=== PATIENT | female | born 1965 | race Caucasian/White ===

== ENCOUNTER 2020-04-27 08:25 | Outpatient (REF) | payer OTHER, SELFPAY | END 2020-04-27 08:26 | disposition home or self-care (01) | LOC: HO.LAB 08:25 | PROVIDERS: PCP Internal Medicine; Visit Provider Internal Medicine | DX: Z20.828 Contact with and (suspected) exposure to other viral communicable diseases (principal) | CPT/HCPCS: 36415; 87635 ==

== ENCOUNTER 2020-05-14 05:51 | Outpatient (REF) | payer OTHER, SELFPAY ==
[2020-05-14 07:59] LABS: MANUAL DIFF FLAG NO
[2020-05-14 08:10] LABS: Basophils Absolute Auto 0.1 X10*3/uL (0.0-0.2); Basophils Percent Auto 1.1 % (0-2); Eosinophils Absolute Auto 0.2 X10*3/uL (0.0-0.4); Eosinophils Percent Auto 3.2 % (0-4); Hematocrit 39.2 % (37-47); Hemoglobin 12.7 g/dl (12.0-16.0); Lymphocytes Absolute Auto 2.2 X10*3/uL (1.2-4.9); Lymphocytes Percent Auto 32.7 % (20-40); Mean Corpuscular HGB Conc 32.4 g/dl (31.0-35.0); Mean Corpuscular Volume 92.5 fL (80-98); Mean Platelet Volume 11.5 fL (9.4-12.3); Monocytes Absolute Auto 0.5 X10*3/uL (0.1-1.2); Neutrophils Absolute Auto 3.7 X10*3/uL (2.0-8.3); Platelet Count 255 X10*3/uL (160-400); Red Blood Count 4.24 X10*6/uL (4.20-5.50); Red Cell Distribution Width 13.1 % (11.0-16.0); White Blood Count 6.6 X10*3/uL (4.8-10.8)
[2020-05-14 08:43] LABS: Alanine Aminotransferase 14 U/L (0-31); Albumin Level 4.1 g/dL (3.5-5.0); Alkaline Phosphatase 87 U/L (39-117); Aspartate Amino Transferase 17 U/L (5-31); Blood Urea Nitrogen 21 mg/dL (9-16); Cholesterol 156 mg/dL; Estimated Glomerular Filt Rate > 60; Glucose Random 94 mg/dL (60-115); HDL Cholesterol 51 mg/dL; LDL Cholesterol Calculated 92 mg/dl; Total Protein 6.6 g/dL (6.5-8.0); Triglycerides 67 mg/dL
[2020-05-14 08:48] LABS: Glucose Urine UA NEG (NEG); Leukocyte Esterase Urine NEG (NEG); Nitrite Urine NEG (NEG); PH 5.5 (5.0-8.0); Specific Gravity - Urine >= 1.030 (1.005-1.025); Urine Blood NEG (NEG); Urine Ketones NEG (NEG); Urine Protein NEG (NEG-TRACE)
[2020-05-14 08:49] LABS: Appearance Urine CLEAR; Color Urine YELLOW
[2020-05-14 08:54] LABS: Free T4 (Free Thyroxine) 1.08 ng/dL (0.71-1.85); Thyroid Stimulating Hormone 0.41 mIU/mL (0.32-4.0)
[2020-05-14 08:57] LABS: Anion Gap 13 (12-20); Carbon Dioxide 26 mmol/L (22-29); Chloride 104 mmol/L (96-108); Potassium 4.3 mmol/l (3.3-5.1); Sodium 139 mmol/L (135-145)
[2020-05-14 09:27] LABS: RBC Urine 0 /HPF (0); Squamous Epithelial Cell Urine 2+ /LPF; WBC Urine 0-2 /HPF (0-4)
[2020-05-14 09:56] LABS: Folate 8.2 ng/mL (> or = 4.0); Vitamin B12 827 pg/mL (200-900)
== END 2020-05-14 05:52 | disposition home or self-care (01) ==
LOC: HO.LAB 05:51
PROVIDERS: PCP Internal Medicine; Visit Provider Internal Medicine
DX: E03.9 Hypothyroidism, unspecified (principal); E78.00 Pure hypercholesterolemia, unspecified
CPT/HCPCS: 36415; 80053; 80061; 81001; 82306; 82607; 82746; 84439; 84443; 85025

== ENCOUNTER 2021-05-01 08:09 | Outpatient (REF) | payer OTHER, SELFPAY ==
--- NOTE | ~2021-05-01 | MM_ITS ---
EXAMINATION: MM SCREENING DIGITAL BREAST TOMOSYNTHESIS, BILATERAL CLINICAL INFORMATION: Screening. Asymptomatic. The lifetime risk of breast cancer based on the Tyrer-Cuzick Model is 6%. COMPARISON: Mammography: 03/23/2020, 03/19/2019, 02/28/2018 TECHNIQUE: Digital breast tomosynthesis is performed in both the craniocaudal and mediolateral oblique views along with computer-aided detection (CAD). Synthesized 2D images are generated from the tomosynthesis. FINDINGS: There are scattered areas of fibroglandular density (ACR BI-RADS breast composition Category b). There are no significant masses, abnormal calcifications, or other abnormalities. Parenchymal pattern is similar to prior exams. The axilla and skin contours are unremarkable. MM/MM tomosynthesis screening BI IMPRESSION: No mammographic evidence of malignancy. ASSESSMENT: BI-RADS 1: Negative RECOMMENDATION: Routine annual mammography screening. This patient's information was entered into a reminder system with a target due date for their next mammogram.
== END 2021-05-01 08:10 | disposition home or self-care (01) ==
LOC: HO.MAMMO 08:09
PROVIDERS: Visit Provider Internal Medicine
DX: Z12.31 Encounter for screening mammogram for malignant neoplasm of breast (principal)
CPT/HCPCS: 77063; 77067

== ENCOUNTER 2021-10-04 06:22 | Outpatient (REF) | payer OTHER, SELFPAY ==
[2021-10-04 06:37] LABS: MANUAL DIFF FLAG NO
[2021-10-04 07:26] LABS: Basophils Absolute Auto 0.1 X10*3/uL (0.0-0.2); Eosinophils Absolute Auto 0.2 X10*3/uL (0.0-0.4); Eosinophils Percent Auto 3.2 % (0-4); Hematocrit 42.8 % (37.0-47.0); Hemoglobin 13.6 g/dl (12.0-16.0); Imm Gran Abs Auto 0.01 X10*3/uL (0.00-0.03); Imm Gran Pct Auto 0.1 % (0.0-0.4); Lymphocytes Absolute Auto 2.6 X10*3/uL (1.2-4.9); Lymphocytes Percent Auto 37.4 % (20-40); Mean Corpuscular HGB Conc 31.8 g/dl (31.0-35.0); Mean Corpuscular Hemoglobin 29.9 pg (27.0-33.0); Mean Corpuscular Volume 94.1 fL (80.0-98.0); Mean Platelet Volume 11.8 fL (9.4-12.3); Monocytes Absolute Auto 0.4 X10*3/uL (0.1-1.2); Monocytes Percent Auto 6.1 % (2-11); Neutrophils Absolute Auto 3.6 x10*3/uL (2.0-8.3); Neutrophils Percent Auto 52.2 % (45-73); Platelet Count 245 X10*3/uL (160-400); Red Blood Count 4.55 X10*6/uL (4.20-5.50); White Blood Count 6.8 X10*3/uL (4.8-10.8)
[2021-10-04 08:29] LABS: Alanine Aminotransferase 14 U/L (0-31); Albumin Level 4.1 g/dL (3.5-5.0); Alkaline Phosphatase 85 U/L (39-117); Anion Gap 13 (12-20); Aspartate Amino Transferase 15 U/L (5-31); Blood Urea Nitrogen 16 mg/dL (9-16); Calcium 9.4 mg/dL (8.4-10.2); Carbon Dioxide 27 mmol/L (22-29); Chloride 105 mmol/L (96-108); Cholesterol 170 mg/dL; Estimated Glomerular Filt Rate > 60; Glucose Random 98 mg/dL (60-115); HDL Cholesterol 51 mg/dL; LDL Cholesterol Calculated 94 mg/dl; Potassium 4.1 mmol/L (3.3-5.1); Sodium 141 mmol/L (135-145); Total Protein 7.1 g/dL (6.5-8.0); Triglycerides 128 mg/dL
[2021-10-04 08:35] LABS: Free T4 (Free Thyroxine) 0.88 ng/dL (0.71-1.85); Thyroid Stimulating Hormone 2.83 uIU/mL (0.32-4.0); Vitamin D 25-OH Total 45.2 ng/mL (>30)
[2021-10-04 08:39] LABS: HBS Num1 2.38 mIU/mL (0-7.99); HBc Num1 0.05 S/CO (0.00-0.79); Hepatitis B Core Antibody Nonreactive (Nonreactive); ~Hepatitis B Surface Antibody NONREACTIVE (Nonreactive)
[2021-10-04 08:42] LABS: HBsAGNum1 0.22 S/CO (0.00-0.99); Hepatitis B Surface Antigen Negative (Negative)
[2021-10-04 08:48] LABS: Folate 12.7 ng/mL (> or = 4.0); Vitamin B12 971 pg/mL (200-900)
[2021-10-05 18:56] LABS: Mumps Virus IgG Antibody >300.00 AU/mL; Rubeola IgG (Measles) >300.00 AU/mL
== END 2021-10-04 06:23 | disposition home or self-care (01) ==
LOC: HO.LAB 06:22
PROVIDERS: PCP Internal Medicine; Visit Provider Internal Medicine
DX: Z01.84 Encounter for antibody response examination (principal); E03.9 Hypothyroidism, unspecified; E78.00 Pure hypercholesterolemia, unspecified
CPT/HCPCS: 36415; 80053; 80061; 82306; 82607; 82746; 84439; 84443; 85025; 86704; 86706; 86735; 86762; 86765; 86787; 87340

== ENCOUNTER 2022-01-05 16:00 | Outpatient (REF) | payer OTHER, SELFPAY ==
--- NOTE | ~2022-01-05 | XR_ITS ---
EXAMINATION: XR LUMBOSACRAL SPINE CLINICAL INFORMATION: M54.50 - Low back pain, unspecified COMPARISON: Lumbar radiographs 11/30/2010 TECHNIQUE: Three views of the lumbosacral spine. FINDINGS: Normal lumbar segmentation with 5 nonrib-bearing lumbar vertebrae of normal height and normal lumbar lordosis. No lumbar vertebral compression or destructive process. There are degenerative disc changes greatest at L5-S1 with disc narrowing and vertebral spurring and lesser disc narrowing L4-L5 with associated facet degeneration L4-S1. There is grade 0-1 spondylolisthesis at L4-L5, new from 2010. The SI joints and visualized sacrum are unremarkable. Surgical clips present right upper abdomen. XR/XR lumbar spine 2-3V IMPRESSION: -Degenerative disc changes L5-S1 and lesser at L4-L5. Facet degeneration L4-S1. -Grade 0-1 spondylolisthesis L4-L5.
== END 2022-01-05 16:01 | disposition home or self-care (01) ==
LOC: HO.XRAY 16:00
PROVIDERS: PCP Internal Medicine; Visit Provider Internal Medicine
DX: M54.50 Low back pain, unspecified (principal)
CPT/HCPCS: 72100

== ENCOUNTER 2022-03-11 15:36 | Outpatient (REF) | payer OTHER, SELFPAY ==
[2022-03-12 10:42] LABS: BV Int Neg Control Negative (Negative); BV Int Pos Control Positive (Positive)
[2022-03-18 07:27] LABS: HPV mRNA E6/E7 rflx Not Detected (Not Detected)
== END 2022-03-11 15:37 | disposition home or self-care (01) ==
LOC: HO.LAB 15:36
PROVIDERS: Visit Provider Advanced Practice Midwife
DX: Z01.419 Encounter for gynecological examination (general) (routine) without abnormal findings (principal); Z11.51 Encounter for screening for human papillomavirus (HPV); N89.8 Other specified noninflammatory disorders of vagina
CPT/HCPCS: 87480; 87510; 87624; 87660; 88142

== ENCOUNTER 2022-05-07 07:52 | Outpatient (REF) | payer OTHER, SELFPAY ==
--- NOTE | ~2022-05-07 | MM_ITS ---
EXAMINATION: MM SCREENING DIGITAL BREAST TOMOSYNTHESIS, BILATERAL CLINICAL INFORMATION: Screening. Asymptomatic. The lifetime risk of breast cancer based on the Tyrer-Cuzick Model is 7%. COMPARISON: Mammography: 05/01/2021, 03/23/2020, 03/19/2019, 03/10/2018 TECHNIQUE: Digital breast tomosynthesis is performed in both the craniocaudal and mediolateral oblique views along with computer-aided detection (CAD). Synthesized 2D images are generated from the tomosynthesis. FINDINGS: There are scattered areas of fibroglandular density (ACR BI-RADS breast composition Category b). Parenchymal pattern is similar to prior studies. No developing density or architectural abnormality. No abnormal calcifications. Small nodular asymmetry central upper left breast on MLO view is similar to prior exams. The axilla and skin contours are unremarkable. MM/MM tomosynthesis screening BI IMPRESSION: No mammographic evidence of malignancy. ASSESSMENT: BI-RADS 2: Benign RECOMMENDATION: Routine annual mammography screening. This patient's information was entered into a reminder system with a target due date for their next mammogram.
== END 2022-05-07 07:53 | disposition home or self-care (01) ==
LOC: HO.MAMMO 07:52
PROVIDERS: PCP Internal Medicine; Visit Provider Internal Medicine
DX: Z12.31 Encounter for screening mammogram for malignant neoplasm of breast (principal)
CPT/HCPCS: 77063; 77067

== ENCOUNTER 2022-10-15 07:41 | Outpatient (REF) | payer OTHER, SELFPAY | END 2022-10-15 07:42 | disposition home or self-care (01) | LOC: HO.LAB 07:41 | PROVIDERS: PCP Internal Medicine; Visit Provider Internal Medicine | DX: Z13.89 Encounter for screening for other disorder (principal) ==

== ENCOUNTER 2022-10-22 07:54 | Outpatient (REF) | payer OTHER, SELFPAY ==
[2022-10-22 08:13] LABS: MANUAL DIFF FLAG NO
[2022-10-22 08:24] LABS: Basophils Absolute Auto 0.1 X10*3/uL (0.0-0.2); Basophils Percent Auto 1.1 % (0-2); Eosinophils Absolute Auto 0.2 X10*3/uL (0.0-0.4); Hemoglobin 13.4 g/dl (12.0-16.0); Imm Gran Abs Auto 0.02 X10*3/uL (0.00-0.03); Imm Gran Pct Auto 0.3 % (0.0-0.4); Lymphocytes Percent Auto 28.7 % (20-40); Mean Corpuscular HGB Conc 32.7 g/dl (31.0-35.0); Mean Corpuscular Volume 91.7 fL (80.0-98.0); Mean Platelet Volume 11.1 fL (9.4-12.3); Monocytes Absolute Auto 0.5 X10*3/uL (0.1-1.2); Monocytes Percent Auto 6.9 % (2-11); Neutrophils Absolute Auto 4.2 x10*3/uL (2.0-8.3); Platelet Count 236 X10*3/uL (160-400); Red Blood Count 4.47 X10*6/uL (4.20-5.50); Red Cell Distribution Width 13.1 % (11.0-16.0)
[2022-10-22 09:21] LABS: Alanine Aminotransferase 12 U/L (0-31); Alkaline Phosphatase 85 U/L (39-117); Anion Gap 13 (12-20); Aspartate Amino Transferase 15 U/L (5-31); Bilirubin Total 1.3 mg/dL (0.0-1.0); Blood Urea Nitrogen 15 mg/dL (9-16); Calcium 9.2 mg/dL (8.4-10.2); Carbon Dioxide 26 mmol/L (22-29); Chloride 109 mmol/L (96-108); Cholesterol 159 mg/dL; Estimated Glomerular Filt Rate > 60; Glucose Random 90 mg/dL (60-115); HDL Cholesterol 47 mg/dL; LDL Cholesterol Calculated 94 mg/dl; Potassium 4.5 mmol/L (3.3-5.1); Sodium 143 mmol/L (135-145); Total Protein 6.5 g/dL (6.5-8.0); Triglycerides 94 mg/dL
[2022-10-22 09:42] LABS: Folate 14.9 ng/mL (> or = 4.0); Thyroid Stimulating Hormone 1.35 uIU/mL (0.32-4.0); Vitamin B12 1012 pg/mL (200-900); Vitamin D 25-OH Total 50.9 ng/mL (>30)
== END 2022-10-22 07:55 | disposition home or self-care (01) ==
LOC: HO.LAB 07:54
PROVIDERS: PCP Internal Medicine; Visit Provider Internal Medicine
DX: E03.9 Hypothyroidism, unspecified (principal); E78.00 Pure hypercholesterolemia, unspecified
CPT/HCPCS: 36415; 80053; 80061; 82306; 82607; 82746; 84439; 84443; 85025

== ENCOUNTER 2022-12-01 08:06 | Outpatient (REF) | payer OTHER, SELFPAY ==
--- NOTE | ~2022-12-01 | XR_ITS ---
EXAMINATION: Knee x-ray CLINICAL INFORMATION: Pain COMPARISON: Previous x-ray most recent from 2019 TECHNIQUE: Standing AP view of both knees and lateral and sunrise view of the left knee FINDINGS: Left: Bone alignment is normal. No fracture or dislocation. There is arthritis at the medial femoral tibial and patellofemoral joints. There is slight lateral position of patella on the sunrise view.. There is a small joint effusion. Standing AP view of the right knee demonstrates degenerative change at the medial femoral tibial joint. XR/XR knee standing BI IMPRESSION: Mild arthritis
--- NOTE | ~2022-12-01 | XR_ITS ---
EXAMINATION: Knee x-ray CLINICAL INFORMATION: Pain COMPARISON: Previous x-ray most recent from 2019 TECHNIQUE: Standing AP view of both knees and lateral and sunrise view of the left knee FINDINGS: Left: Bone alignment is normal. No fracture or dislocation. There is arthritis at the medial femoral tibial and patellofemoral joints. There is slight lateral position of patella on the sunrise view.. There is a small joint effusion. Standing AP view of the right knee demonstrates degenerative change at the medial femoral tibial joint. XR/XR knee LT 2V IMPRESSION: Mild arthritis
== END 2022-12-01 08:07 | disposition home or self-care (01) ==
LOC: HO.HOSX 08:06
PROVIDERS: Visit Provider Physician Assistant
DX: M17.12 Unilateral primary osteoarthritis, left knee (principal); M25.561 Pain in right knee
CPT/HCPCS: 73560; 73565; 99202

== ENCOUNTER → 2023-01-27 15:25 | Outpatient (BNVA) | payer OTHER, SELFPAY | PROVIDERS: Visit Provider Physician Assistant | DX: M17.12 Unilateral primary osteoarthritis, left knee (principal) | CPT/HCPCS: 20610; J7323 ==

== ENCOUNTER 2023-02-03 11:30 | Outpatient (AMB) | payer OTHER, SELFPAY ==
--- NOTE | 2023-02-03 11:35 | A.OFFVIS_ITS ---
Intake Intake Visit Reasons: OV-Left knee Euflexxa #2 Intake Note: Janki a 57 year old female who presents today for left knee Euflexxa injection #2. Allergies codeine Allergy (Unknown, Verified 02/03/23 11:44) anxious/itchy oxycodone Allergy (Unknown, Verified 02/03/23 11:44) nausea HPI OV-Left knee Euflexxa #2 HPI Details 57 yo female returns to the office today #2 euflexxa left knee PFSH Medical History Cervical cancer screening Cholelithiasis Colon cancer screening History of torn meniscus of left knee Hypothyroid Obesity (BMI 30-39.9) Surgical History History of laparoscopic cholecystectomy History of tubal ligation Family History Father Alzheimers disease Mother Diabetes Hypertension Maternal Grandmother Liver cancer Bipolar 1 disorder Maternal Aunt Lung cancer Maternal Uncle FH: prostate cancer Paternal Grandmother Uterine cancer Brother CVA (cerebral vascular accident) Eye cancer Myocardial infarct Son Bipolar 1 disorder Family/Other Mental health disorder Maternal Grandfather Myocardial infarct Social History Housing: Apartment Alcohol intake: never Patient Tobacco Use Status: Never used Tobacco e-Cigarette/Vaping Use: Never Used Second Hand Smoke Exposure: No service: No Current occupational status: employed 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 Current occupational exposures/hazards: No Cognitive needs: No Hearing needs: No Vision needs: No Female Reproductive History Menstrual Age of Menarche: 15 Review of Systems Const All systems reviewed & are unremarkable except as noted in HPI and below Physical Exam Const General: cooperative, healthy appearing, comfortable, no acute distress, well developed and alert Orientation/consciousness: patient oriented x3 HEENT Head: Yes normal to inspection, Yes normocephalic and Yes atraumatic Eyes General: appearance normal, both eyes and all related structures Resp Effort & Inspection: normal respiratory effort and able to speak in complete sentences Cardio Rate: regular rate Peripheral pulses: Peripheral pulses 2+ throughout GI Palpation (GI): Soft to palpation Skin Lesions: no lesions Rashes: no rashes Neuro General: patient oriented x3 Extrem Other: Left knee skin intact, no erythema or joint effusion. Lateral retropatellar tenderness. Full ROM with crepitus. Negative Faisal?s. No ligamentous laxity. NVI. Office Procedures Joint Injection/Drain Joint Injection/Drain Details: Hyaluronate Sodium [Euflexxa] ? 20 mg INTRAARTIC .STK-MED ONE Primary Site: left knee Prep: site was prepped using aseptic technique, ethochloride spray was applied and injection warnings given Injected: in the joint Approach Used: anterolateral Procedure: The patient tolerated the procedure well and there was some relief with the local anesthesia Coding 33951 - Glenohumeral/Tronchanteric Bursa/Intraarticular Procedure code (CPT) selection complete Results Reviewed Results Reviewed: 02/03/23 11:34 Hyaluronate Sodium [Euflexxa] 20 mg INTRAARTIC .STK-MED ONE Assessment & Plan Assessment & Plan (1) Primary osteoarthritis of left knee: Code(s): M17.12 - Unilateral primary osteoarthritis, left knee Plan We discussed options today which include Euflexxa gel injection. They did consent to move forward with the left knee Euflexxa gel injection #2, which was tolerated well. I recommended rest, ice and elevation and OTC anti- inflammatories PRN for discomfort. If symptoms worsen, patient will contact the office, otherwise she will return in 1 week for Euflexxa gel injection #3. Coding Level of Care Code Procedure Only Diagnoses Primary osteoarthritis of left knee M17.12 CPT Codes Coding - Joint 7: 47225 - Glenohumeral/Tronchanteric Bursa/Intraarticular ([id number])
== END 2023-02-03 11:54 | disposition home or self-care (01) ==
PROVIDERS: Visit Provider Physician Assistant
DX: M17.12 Unilateral primary osteoarthritis, left knee (principal)
CPT/HCPCS: 20610

== ENCOUNTER → 2023-02-03 11:30 | Outpatient (BNVA) | payer OTHER, SELFPAY | PROVIDERS: Visit Provider Physician Assistant | DX: M17.12 Unilateral primary osteoarthritis, left knee (principal) | CPT/HCPCS: 20610; J7323 ==

== ENCOUNTER 2023-02-10 15:21 | Outpatient (AMB) | payer OTHER, SELFPAY ==
--- NOTE | 2023-02-10 15:24 | MHC.OFFVIS ---
Intake Vital Signs 02/10/23 15:25 Height 5 ft 2 in Weight 190 lb BMI 34.7 Intake Visit Reasons: OV-Left knee Euflexxa #3 Intake Note: Janki a 57 year old female who presents today for left knee Euflexxa injection #3 Allergies codeine Allergy (Unknown, Verified 02/03/23 11:44) anxious/itchy oxycodone Allergy (Unknown, Verified 02/03/23 11:44) nausea HPI OV-Left knee Euflexxa #3 HPI Details 57-year-old female who returns to the office today for left knee Euflexxa gel injection #3. PFSH Medical History Cervical cancer screening Cholelithiasis Colon cancer screening History of torn meniscus of left knee Hypothyroid Obesity (BMI 30-39.9) Surgical History History of laparoscopic cholecystectomy History of tubal ligation Family History Father Alzheimers disease Mother Diabetes Hypertension Maternal Grandmother Liver cancer Bipolar 1 disorder Maternal Aunt Lung cancer Maternal Uncle FH: prostate cancer Paternal Grandmother Uterine cancer Brother CVA (cerebral vascular accident) Eye cancer Myocardial infarct Son Bipolar 1 disorder Family/Other Mental health disorder Maternal Grandfather Myocardial infarct Social History Housing: Apartment Alcohol intake: never Patient Tobacco Use Status: Never used Tobacco e-Cigarette/Vaping Use: Never Used Second Hand Smoke Exposure: No service: No Current occupational status: employed 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 Current occupational exposures/hazards: No Cognitive needs: No Hearing needs: No Vision needs: No Female Reproductive History Menstrual Age of Menarche: 15 Review of Systems Const All systems reviewed & are unremarkable except as noted in HPI and below Physical Exam Vital Signs: BMI result Body Mass Index 34.7 Const General: cooperative, healthy appearing, comfortable, no acute distress, well developed and alert Orientation/consciousness: patient oriented x3 HEENT Head: Yes normal to inspection, Yes normocephalic and Yes atraumatic Eyes General: appearance normal, both eyes and all related structures Resp Effort & Inspection: normal respiratory effort and able to speak in complete sentences Cardio Rate: regular rate Peripheral pulses: Peripheral pulses 2+ throughout GI Palpation (GI): Soft to palpation Skin Lesions: no lesions Rashes: no rashes Neuro General: patient oriented x3 Extrem Other: Left knee skin intact, no erythema or joint effusion. Lateral retropatellar tenderness. Full ROM with crepitus. Negative Faisal?s. No ligamentous laxity. NVI. Office Procedures Joint Injection/Drain Joint Injection/Drain Details: Hyaluronate Sodium [Euflexxa] ? 20 mg INTRAARTIC .STK-MED ONE Primary Site: left knee Prep: site was prepped using aseptic technique, ethochloride spray was applied and injection warnings given Injected: in the joint Approach Used: anterolateral Procedure: The patient tolerated the procedure well Coding 76319 - Glenohumeral/Tronchanteric Bursa/Intraarticular Procedure code (CPT) selection complete Results Reviewed Results Reviewed: 02/10/23 15:19 Hyaluronate Sodium [Euflexxa] 20 mg INTRAARTIC .STK-MED ONE Assessment & Plan Assessment & Plan (1) Primary osteoarthritis of left knee: Code(s): M17.12 - Unilateral primary osteoarthritis, left knee Plan We discussed options today which include Euflexxa gel injection. They did consent to move forward with the left knee Euflexxa gel injection #3, which was tolerated well. I recommended rest, ice and elevation and OTC anti-inflammatories PRN for discomfort. If symptoms persist or worsens over the next 6-8 weeks, patient will contact the office, otherwise follow-up as needed. Patient Instructions: Scribed for Chrissy Moseley PA-C, by Toni Berrios medical billing manager, on 02/10/2023 at 3:30 PM EST. IChrissy PA-C, have personally reviewed and agree with the information entered by the scribe. Coding Level of Care Code Procedure Only Diagnoses Primary osteoarthritis of left knee M17.12 CPT Codes Coding - Joint 7: 12415 - Glenohumeral/Tronchanteric Bursa/Intraarticular ([id number])
[2023-02-10 15:25] VITALS: BMI 34.7
== END 2023-02-13 21:54 | disposition home or self-care (01) ==
PROVIDERS: Visit Provider Physician Assistant
DX: M17.12 Unilateral primary osteoarthritis, left knee (principal)
CPT/HCPCS: 20610

== ENCOUNTER → 2023-02-10 15:21 | Outpatient (BNVA) | payer OTHER, SELFPAY | PROVIDERS: Visit Provider Physician Assistant | DX: M17.12 Unilateral primary osteoarthritis, left knee (principal) | CPT/HCPCS: 20610; J7323 ==

== ENCOUNTER 2023-03-22 15:21 | Outpatient (AMB) | payer OTHER, SELFPAY ==
[2023-03-22 15:30] VITALS: BP 130/80; BMI 34.6
--- NOTE | 2023-03-22 15:30 | A.OFFVIS_ITS ---
Intake Vital Signs 03/22/23 15:30 Height 5 ft 2 in Weight 189 lb BMI 34.6 BP 130/80 Intake Visit Reasons: Annual Intake Note: The patient agreed to use of a certified medical assistant during this encounter. Scribed for MATHEW Figueroa by Reba Cassidy certified medical assistant, on 03/22/2023 at 3:52 pm EST. Tool And Production Planner Required: No Information Interpreted: non-clinical & clinical Grounds And Nursery Specialist: Grounds And Nursery Specialist Present (Aidyn) Allergies codeine Allergy (Unknown, Verified 03/22/23 15:31) anxious/itchy oxycodone Allergy (Unknown, Verified 03/22/23 15:31) nausea Is last menstrual period known: No Post menopausal: Yes HPI HPI Comments History of Present Illness Details She is a postmenopausal woman presenting for annual exam. Doing well with no disability representative concerns. Patient admits she does not eat a healthy diet but occasionally takes Calcium and Vitamin D supplements. She stays active with work. Currently not sexually active. Denies vaginal itching and irritation. Denies family hx of breast, colon and ovarian cancer. Last pap smear 03/11/22. Last mammogram 05/07/22. UTD on cologaurd. [facility] Medical History Cervical cancer screening Cholelithiasis Colon cancer screening History of torn meniscus of left knee Hypothyroid Obesity (BMI 30-39.9) Surgical History History of laparoscopic cholecystectomy History of tubal ligation Family History Father Alzheimers disease Mother Diabetes Hypertension Maternal Grandmother Liver cancer Bipolar 1 disorder Maternal Aunt Lung cancer Maternal Uncle FH: prostate cancer Paternal Grandmother Uterine cancer Brother CVA (cerebral vascular accident) Eye cancer Myocardial infarct Son Bipolar 1 disorder Family/Other Mental health disorder Maternal Grandfather Myocardial infarct Social History Housing: Apartment Alcohol intake: never Patient Tobacco Use Status: Never used Tobacco e-Cigarette/Vaping Use: Never Used Second Hand Smoke Exposure: No service: No Current occupational status: employed 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 Current occupational exposures/hazards: No Cognitive needs: No Hearing needs: No Vision needs: No Female Reproductive History Menstrual Age of Menarche: 15 control method: permanent sterilization Total pregnancies: 2 Full term: 2 Number of Living Children: 2 Date of last pap smear: 03/11/22 (negative) Date of Mammogram: 05/07/22 Physical Exam Vital Signs: Last Vital Signs BP 130/80 03/22/23 15:30 BMI result Body Mass Index 34.6 Const General: cooperative, healthy appearing, no acute distress, well developed and alert Orientation/consciousness: patient oriented x3 HEENT Head: Yes normal to inspection Eyes General: appearance normal, both eyes and all related structures Neck Neck: Yes normal visual inspection Thyroid: Thyroid normal Chest Chest palpation & inspection: normal inspection of the chest Breast/axilla inspection: normal inspection of the breasts (no puckering, dimpling, peau de orange, retraction, discharge, masses) Breast/axilla palpation: normal palpation of the breasts Resp Effort & Inspection: normal respiratory effort GI Inspection: Yes normal to inspection and Yes obesity Palpation (GI): Soft to palpation (to palpation) Rectal Exam - Female: deferred General: Yes bladder normal to inspection External Female Exam: normal external appearance and normal appearance of the urethra Speculum Exam - Vagina: normal appearance of the vagina, normal palpation and vagina atrophic Speculum Exam - Cervix: normal appearance of the cervix and normal palpation Bimanual exam- vagina & uterus: normal palpation and normal palpation Bimanual Exam- Adnexa, other: normal adnexae and no masses Skin General skin exam: no rashes or lesions noted Neuro General: patient oriented x3 Cognition (Neuro): normal cognition Extrem General: Yes normal to inspection Psych Attitude: cooperative Thought process: Normal thought process present Assessment & Plan Assessment & Plan (1) Encounter for well woman exam: Code(s): Z01.419 - Encounter for gynecological examination (general) (routine) without abnormal findings Plan: Discussed: Current recommendations for pap smears per ASCCP guidelines. Breast awareness and periodic self breast exams. Encouraged yearly mammograms. Maintaining a healthy lifestyle including a well balanced diet including Calcium and Vitamin D and routine exercise. Encouraged to use condoms for STD prevention if become sexually active. Contact office with any PMB. All of her questions and concerns were addressed to the best of my ability. RTO in 1 year for AG. Orders: Orders MM tomosynthesis screening BI Today Z12.31 - Encounter for screening mammogram for malignant neoplasm of breast Coding Level of Care Code Est Pt Prev Care 40-64y(44458) Diagnoses Encounter for well woman exam Z01.419
== END 2023-03-22 16:02 | disposition home or self-care (01) ==
PROVIDERS: Visit Provider Advanced Practice Midwife
DX: Z01.419 Encounter for gynecological examination (general) (routine) without abnormal findings (principal)
CPT/HCPCS: 99396

== ENCOUNTER → 2023-03-22 15:21 | Outpatient (BNVA) | payer OTHER, SELFPAY | PROVIDERS: Visit Provider Advanced Practice Midwife ==

== ENCOUNTER 2023-05-01 15:38 | Outpatient (AMB) | payer OTHER, SELFPAY ==
[2023-05-01 15:39] VITALS: BP 144/96; PULSE 64; O2SAT 98; BMI 34.2
--- NOTE | 2023-05-01 15:39 | MHC.PC.OV ---
Vital Signs 05/01/23 15:39 Height 5 ft 2 in Weight 187 lb BMI 34.2 BP 144/96 H Blood Pressure Location Lt brachial Position Sitting Pulse 64 Pulse Source Pulse Oximeter Temp Source Skin Pulse Oximetry (%) 98 Oxygen Delivery Method Room Air Intake Visit Reasons: Hypothyroidism, blood pressure Library Customer Service Clerk Required: No Allergies codeine Allergy (Unknown, Verified 05/01/23 15:40) anxious/itchy oxycodone Allergy (Unknown, Verified 05/01/23 15:40) nausea Tobacco use date assessed: 05/01/23 Dental Screening Dental Screen Date: 05/01/23 Did you have a dental visit in the last 12 months?: Yes Did you have a dental problem in the last 6 months where you did not have access to dental care?: No Was dental information given to patient?: Patient has dentist HPI Hypothyroidism, blood pressure HPI Details 57-year-old obese female with hypertension hypothyroidism last seen in October 2022. Patient had some left knee pain and is here for follow-up mammogram is due this month patient got her flu shot April 22. As for the knee pain follows up with Ortho had left knee Euflexxa gel injection 3. [facility] Medical History (Updated 05/01/23 @ 16:26 by Lindsey Carter MD) Left knee pain History of torn meniscus of left knee Cervical cancer screening Colon cancer screening Cholelithiasis Obesity (BMI 30-39.9) Hypothyroid Surgical History History of laparoscopic cholecystectomy History of tubal ligation Family History Father Alzheimers disease Mother Diabetes Hypertension Maternal Grandmother Liver cancer Bipolar 1 disorder Maternal Aunt Lung cancer Maternal Uncle FH: prostate cancer Paternal Grandmother Uterine cancer Brother CVA (cerebral vascular accident) Eye cancer Myocardial infarct Son Bipolar 1 disorder Family/Other Mental health disorder Maternal Grandfather Myocardial infarct Social History Housing: Apartment Alcohol intake: never Patient Tobacco Use Status: Never used Tobacco e-Cigarette/Vaping Use: Never Used Second Hand Smoke Exposure: No service: No Current occupational status: employed 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 1. Little interest or pleasure in doing things: not at all 2. Feeling down, depressed, or hopeless: not at all 3. Trouble falling or staying asleep, or sleeping too much: not at all 4. Feeling tired or having little energy: not at all 5. Poor appetite or overeating: not at all 6. Feeling bad about yourself - or that you are a failure or have let yourself or your family down: not at all 7. Trouble concentrating on things, such as reading the newspaper or watching television: not at all 8. Moving or speaking so slowly that other people could have noticed. Or the opposite - being so fidgety or restless that you have been moving around a lot more than usual: not at all 9. Thoughts that you would be better off or of hurting yourself in some way: not at all Total score: 0 Depression Screening Interpretation: Negative Depression Screening Done: Yes Source: Developed by Drs. Barak Elise, Brandi Rich, Sameer Ceballos and colleagues, with an educational rodrick from [employer]. Thrive Questionnaire Date Thrive assessed: 08/22/22 AUDIT C Alcohol Use Questionnaire (AUDIT-C) 1. How often do you have a drink containing alcohol?: Never Total Score: 0 KATERYNA-7 AMB Questionnaire KATERYNA-7 Date KATERYNA - 7 assessed: 08/22/22 Source: Developed by Drs. Barak Elise, Brandi Rich, Sameer Ceballos and colleagues, with an educational rodrick from [employer]. Physical exam (Primary Care) Vital Signs: Last Vital Signs Pulse 64 05/01/23 15:39 BP 144/96 H 05/01/23 15:39 Pulse Ox 98 05/01/23 15:39 Oxygen Delivery Method Room Air 05/01/23 15:39 BMI result Body Mass Index 34.2 Tobacco/Smoking Status: Tobacco use Status Tobacco use date assessed 05/01/23 05/01/23 15:40 Patient Tobacco Use Status Never used Tobacco 05/01/23 15:40 e-Cigarette/Vaping Use Never Used 05/01/23 15:40 PHQ-9: PHQ-9 Score PHQ-9: Total score 0 05/01/23 15:52 Depression Screening Interpretation: Negative Thrive Assessment: Date of Thrive Assessment Date Thrive assessed 08/22/22 05/01/23 15:40 Const General: alert; No acute distress Eyes Conjunctivae: conjunctivae normal Resp Auscultation: clear to auscultation bilaterally Cardio Rate: regular rate Rhythm: regular rhythm GI Inspection: Yes normal to inspection Extrem General: Yes normal to inspection and No edema Assessment and Plan Assessment & Plan (1) Hypothyroid: Code(s): E03.9 - Hypothyroidism, unspecified Qualifiers: Hypothyroidism type: acquired Qualified Code(s): E03.9 - Hypothyroidism, unspecified Plan: Continue with the thyroid medication October 2022 last blood work (2) Obesity (BMI 30-39.9): Code(s): E66.9 - Obesity, unspecified Plan: Diet and exercise (3) Hypertension: Code(s): I10 - Essential (primary) hypertension Plan: Continue with blood pressure medication. Decrease salt intake and exercise patient not on any medication yet. PAtient BP has been good at home (4) Primary osteoarthritis of left knee: Code(s): M17.12 - Unilateral primary osteoarthritis, left knee Plan: Patient follows up with orthopedics has had Euflexxa injection 3. (5) Bilateral hand pain: Code(s): M79.641 - Pain in right hand; M79.642 - Pain in left hand Orders: Orders Free T4 (Free Thyroxine) 6 Months E03.9 - Hypothyroidism, unspecified Complete Blood Count Auto Diff 6 Months E03.9 - Hypothyroidism, unspecified Vitamin B12 and Folate 6 Months E03.9 - Hypothyroidism, unspecified XR hand RT 2V Today M79.641 - Pain in right hand, M79.642 - Pain in left hand Thyroid Stimulating Hormone 6 Months E03.9 - Hypothyroidism, unspecified Comprehensive Met. Panel 6 Months E03.9 - Hypothyroidism, unspecified Lipid Panel 6 Months E03.9 - Hypothyroidism, unspecified, E78.00 - Pure hypercholesterolemia, unspecified Vitamin D 25-OH Total 6 Months E03.9 - Hypothyroidism, unspecified XR hand LT 2V Today M79.641 - Pain in right hand, M79.642 - Pain in left hand Coding Level of Care Code Est Pt Level 4 (77691) Diagnoses Acquired hypothyroidism E03.9 Hypothyroidism type: acquired Obesity (BMI 30-39.9) E66.9 Hypertension I10 Primary osteoarthritis of left knee M17.12 Bilateral hand pain M79.641; M79.642
== END 2023-05-01 16:29 | disposition home or self-care (01) ==
PROVIDERS: Visit Provider Internal Medicine
DX: E03.9 Hypothyroidism, unspecified (principal); E66.9 Obesity, unspecified; I10 Essential (primary) hypertension; Z68.34 Body mass index [BMI] 34.0-34.9, adult; M17.12 Unilateral primary osteoarthritis, left knee; M79.641 Pain in right hand; M79.642 Pain in left hand
CPT/HCPCS: 99214

== ENCOUNTER 2023-05-10 15:49 | Outpatient (REF) | payer OTHER, SELFPAY ==
--- NOTE | ~2023-05-10 | XR_ITS ---
EXAMINATION: XR HAND, RIGHT CLINICAL INFORMATION: Pain. COMPARISON: Radiographs dated 10/23/2015. TECHNIQUE: PA, lateral, and oblique views of the right hand. FINDINGS: Bony alignment and mineralization are normal. There is a neutral ulnar variance. The proximal and distal carpal rows are intact. There is marked osteoarthritic change of the first carpometacarpal joint. There is mild osteoarthritic change of the second and third distal interphalangeal joints. No fracture or dislocation is seen. No abnormal bone erosion. No focal soft tissue swelling, gas or foreign body is seen. XR/XR hand RT 2V IMPRESSION: 1. No fracture or dislocation is seen. 2. There is marked osteoarthritic change of the right first carpometacarpal joint. 3. There is moderate osteoarthritic change of the second and third distal interphalangeal joints. 4. There is no abnormal bony erosive change. EXAMINATION: XR HAND, LEFT CLINICAL INFORMATION: Pain. COMPARISON: None available. TECHNIQUE: PA, lateral, and oblique views of the left hand. FINDINGS: Bony alignment and mineralization are normal. There is a neutral ulnar variance. The proximal and distal carpal rows are intact. There is moderate osteoarthritic change of the first carpometacarpal joint. No fracture or dislocation is seen. There is no abnormal bone erosion. No focal soft tissue swelling, gas or foreign body is seen. IMPRESSION: 1. No fracture or dislocation is seen. 2. There is moderate osteoarthritic change of the first carpometacarpal joint. 3. There is mild osteoarthritic change of the interphalangeal joint of the thumb. 4. No abnormal focal bone erosion is noted.
--- NOTE | ~2023-05-10 | XR_ITS ---
EXAMINATION: XR HAND, RIGHT CLINICAL INFORMATION: Pain. COMPARISON: Radiographs dated 10/23/2015. TECHNIQUE: PA, lateral, and oblique views of the right hand. FINDINGS: Bony alignment and mineralization are normal. There is a neutral ulnar variance. The proximal and distal carpal rows are intact. There is marked osteoarthritic change of the first carpometacarpal joint. There is mild osteoarthritic change of the second and third distal interphalangeal joints. No fracture or dislocation is seen. No abnormal bone erosion. No focal soft tissue swelling, gas or foreign body is seen. XR/XR hand LT 2V IMPRESSION: 1. No fracture or dislocation is seen. 2. There is marked osteoarthritic change of the right first carpometacarpal joint. 3. There is moderate osteoarthritic change of the second and third distal interphalangeal joints. 4. There is no abnormal bony erosive change. EXAMINATION: XR HAND, LEFT CLINICAL INFORMATION: Pain. COMPARISON: None available. TECHNIQUE: PA, lateral, and oblique views of the left hand. FINDINGS: Bony alignment and mineralization are normal. There is a neutral ulnar variance. The proximal and distal carpal rows are intact. There is moderate osteoarthritic change of the first carpometacarpal joint. No fracture or dislocation is seen. There is no abnormal bone erosion. No focal soft tissue swelling, gas or foreign body is seen. IMPRESSION: 1. No fracture or dislocation is seen. 2. There is moderate osteoarthritic change of the first carpometacarpal joint. 3. There is mild osteoarthritic change of the interphalangeal joint of the thumb. 4. No abnormal focal bone erosion is noted.
== END 2023-05-10 15:50 | disposition home or self-care (01) ==
LOC: HO.XRAY 15:49
PROVIDERS: PCP Internal Medicine; Visit Provider Internal Medicine
DX: M79.641 Pain in right hand (principal); M79.642 Pain in left hand
CPT/HCPCS: 73120

== ENCOUNTER 2023-05-13 07:50 | Outpatient (REF) | payer OTHER, SELFPAY | END 2023-05-13 07:51 | disposition home or self-care (01) | LOC: HO.MAMMO 07:50 | PROVIDERS: PCP Internal Medicine; Visit Provider Internal Medicine | DX: Z12.31 Encounter for screening mammogram for malignant neoplasm of breast (principal) | CPT/HCPCS: 77063; 77067 ==

== ENCOUNTER → 2023-05-13 08:15 | Outpatient (BNV) | payer OTHER, SELFPAY | PROVIDERS: PCP Internal Medicine; Visit Provider Radiology Diagnostic Radiology | DX: Z12.31 Encounter for screening mammogram for malignant neoplasm of breast (principal) | CPT/HCPCS: 77063; 77067 ==

== ENCOUNTER 2023-07-08 09:04 | Outpatient (AMB) | payer OTHER, SELFPAY ==
--- NOTE | 2023-07-08 09:06 | MHC.OFFWIV ---
Intake Vital Signs 07/08/23 09:08 Weight 84.822 kg BP 114/78 Blood Pressure Location Lt brachial Position Sitting Pulse 64 Pulse Source Pulse Oximeter Temp 97.6 F Temp Source Oral Pulse Oximetry (%) 100 Oxygen Delivery Method Room Air Intake Visit Reasons: EP sore throat congeston Intake Note: Patient here because shes been sick since Monday with sore throat and cough. She lost her voice at one point. Patient Tobacco Use Status: Never used Tobacco Allergies codeine Allergy (Unknown, Verified 07/08/23 09:08) anxious/itchy oxycodone Allergy (Unknown, Verified 07/08/23 09:08) nausea Do you need a note to return to daycare/school/sports/work: No HPI HPI Comments History of Present Illness Details [id number] 58-year-old female presents with fatigue, malaise bilateral ear pain, sore throat, intermittent cough that started Monday. 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 She denies chest pain, shortness of breath, nausea, vomiting, abdominal pain, diarrhea, headache, vision changes, dizziness Physical exam benign Likely viral illness. No signs of epiglottitis, retropharyngeal abscess, airway compromise, otitis media, otitis externa, mastoiditis. No signs of acute respiratory distress, PE. Plan at this time viral testing. Will discharge home with magic mouthwash and prednisone with inhaler. Educated patient on diagnosis and treatment plan, answered all question, patient verbalizes understanding. At this time patient will be discharged home, advised to return with new or worsening symptoms. Educated on worrisome signs and symptoms and when to return. At this time I feel comfortable discharge home. [facility] Medical History Left knee pain History of torn meniscus of left knee Cervical cancer screening Colon cancer screening Cholelithiasis Obesity (BMI 30-39.9) Hypothyroid Surgical History History of laparoscopic cholecystectomy History of tubal ligation Family History Father Alzheimers disease Mother Diabetes Hypertension Maternal Grandmother Liver cancer Bipolar 1 disorder Maternal Aunt Lung cancer Maternal Uncle FH: prostate cancer Paternal Grandmother Uterine cancer Brother CVA (cerebral vascular accident) Eye cancer Myocardial infarct Son Bipolar 1 disorder Family/Other Mental health disorder Maternal Grandfather Myocardial infarct Social History Housing: Apartment Alcohol intake: never Patient Tobacco Use Status: Never used Tobacco e-Cigarette/Vaping Use: Never Used Second Hand Smoke Exposure: No service: No Current occupational status: employed 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 Current occupational exposures/hazards: No Cognitive needs: No Hearing needs: No Vision needs: No Female Reproductive History Menstrual Age of Menarche: 15 Review of Systems Const Details: Constitutional : No Weight loss, No Fever, No Chills, + Fatigue, + Malaise ENT/Mouth : + sore throat, No Rhinorrhea, + ear pain Eyes: No Eye Pain, No Swelling, No Redness Cardiovascular : No Chest Pain, No SOB, No Dyspnea on Exertion, No Orthopnea, No Edema, No Palpitations Respiratory : + Cough, No Sputum, + Wheezing Gastrointestinal : No Nausea, No Vomiting, No Diarrhea, No Constipation, No abdominal Pain, No Hematochezia, No Melena Genitourinary : No Dysuria, No Urinary Frequency, No Hematuria, Musculoskeletal : No joint pain, No Myalgias, No Joint Swelling Skin : No Skin Lesions, No rash Neuro : No Weakness, No Numbness, No Dizziness, No Headache Psych : No Anxiety/Panic, No Depression All other systems reviewed and are negative All systems reviewed & are unremarkable except as noted in HPI and below Physical Exam Vital Signs: Last Vital Signs Temp 97.6 F 07/08/23 09:08 Pulse 64 07/08/23 09:08 BP 114/78 07/08/23 09:08 Pulse Ox 100 07/08/23 09:08 Oxygen Delivery Method Room Air 07/08/23 09:08 vss Appearance: Alert.? Oriented X3.? No acute distress.? Head: Normocephalic, atraumatic, no step-offs or deformities Eyes: Pupils equal, round and reactive to light.? ENT: Pharynx normal.??External ears normal, TMs normal bilaterally and EAC's normal. No pain with manipulation of external ears bilaterally. No mastoid tenderness. Neck: Normal inspection.? Neck supple.? CVS: Normal heart rate and rhythm.? Pulses normal.? Respiratory: No respiratory distress.? Breath sounds normal.? Skin: Skin warm and dry.? Normal skin color.? Normal skin turgor.? Extremities: No lower extremity edema.? No calf ttp. 5/5 strength to bilateral upper and lower extremities Neuro: Oriented X 3.? No motor deficit.? No sensory deficit. CN 2-12 intact Results AMB Rapid Strep AMB Rapid Strep Negative Last Edit by MERCEDES Plata on 07/08/23 09:17 Results Reviewed Results Reviewed: Laboratory Last Values Strep Scn Rapid Clinic Negative 07/08/23 09:17 Assessment & Plan Assessment & Plan (1) Viral illness: Code(s): B34.9 - Viral infection, unspecified Plan Take your medications as prescribed. If you were prescribed antibiotics today, it is important that you take your medication to their entirety, do not skip any doses, do not finish them early. Follow-up with your primary care provider this week. Return to the emergency department with new or worsening symptoms. Such as fevers, chills, chest pain, shortness of breath, nausea, vomiting, dizziness, headache, vision changes, lethargy In case of emergency call 911 Orders: Orders AMB Rapid Strep Screen Today Z13.9 - Encounter for screening, unspecified SARS-CoV2/FLU/RSV Today B34.9 - Viral infection, unspecified Medications: New Magic Mouthwash Diphen/Lido/Antacid 1:1:1 Lidocaine Viscous 2 % 80mL; diphenhydramine 12.5 mg/5 mL 80mL; aluminum-mag hydrox-simeth [id number]/5mL 80mL Swish and spit do not swallow 5 mL PO TID 240 mL 0RF prednisone 20 mg PO DAILY 5 tabs 0RF 5 days albuterol sulfate 90 mcg/actuation 2 puffs inhalation Q6H PRN 6.7 grams 0RF shortness of breath or wheezing Coding Level of Care Code Est Pt Level 3 (79193) Diagnoses Viral illness B34.9
[2023-07-08 09:08] VITALS: BP 114/78; PULSE 64; TEMP 36.4; O2SAT 100
== END 2023-07-08 11:07 | disposition home or self-care (01) ==
PROVIDERS: PCP Internal Medicine; Visit Provider Physician Assistant
DX: B34.9 Viral infection, unspecified (principal); J02.9 Acute pharyngitis, unspecified
CPT/HCPCS: 87880; 99051; 99213

== ENCOUNTER 2023-07-08 10:54 | Outpatient (REF) | payer OTHER, SELFPAY ==
[2023-07-08 11:44] LABS: Influenza A PCR NEGATIVE (Negative); Influenza B PCR NEGATIVE (Negative); Resp Syncy Virus RNA Qual PCR NEGATIVE (Negative); SARS COV2 PCR INHOUSE NEGATIVE (Negative)
== END 2023-07-08 10:55 | disposition home or self-care (01) ==
LOC: HO.HMGCLNP 10:54
PROVIDERS: Visit Provider Physician Assistant
DX: B34.9 Viral infection, unspecified (principal); Z11.52 Encounter for screening for COVID-19
CPT/HCPCS: 0241U

== ENCOUNTER 2023-07-18 11:32 | Outpatient (AMB) | payer OTHER, SELFPAY ==
[2023-07-18 11:41] VITALS: BP 132/80; PULSE 60; TEMP 36.6; O2SAT 100; BMI 34.2
--- NOTE | 2023-07-18 11:41 | AM.OFFWIN_ITS ---
Intake Vital Signs 07/18/23 11:41 Height 5 ft 2 in Weight 187 lb BMI 34.2 BP 132/80 Blood Pressure Location Rt brachial Position Sitting Pulse 60 Pulse Source Pulse Oximeter Temp 97.8 F Temp Source Temporal Artery Scan Pulse Oximetry (%) 100 Oxygen Delivery Method Room Air Intake Visit Reasons: EP LT leg swelling Intake Note: pt is here for c/o left leg swelling due to fall monday Patient Tobacco Use Status: Never used Tobacco Allergies codeine Allergy (Unknown, Verified 07/18/23 12:11) anxious/itchy oxycodone Allergy (Unknown, Verified 07/18/23 12:11) nausea Medication List - Last Reconciled 07/18/23 by Ney Clemente MD Synthroid (levothyroxine) 150 mcg PO DAILY 90 days NS Do you need a note to return to daycare/school/sports/work: Yes HPI EP LT leg swelling HPI Details 58-year-old female presents to the [facility] for a sick visit. Patient fell from the curb and landed on her back 2 days ago. She was able to get up without assistance and walk. Patient is reporting pain and swelling in the left knee since. She has history of meniscal tear in the past. She is able to walk without any limp. [facility] Medical History Left knee pain History of torn meniscus of left knee Cervical cancer screening Colon cancer screening Cholelithiasis Obesity (BMI 30-39.9) Hypothyroid Surgical History History of laparoscopic cholecystectomy History of tubal ligation Family History Father Alzheimers disease Mother Diabetes Hypertension Maternal Grandmother Liver cancer Bipolar 1 disorder Maternal Aunt Lung cancer Maternal Uncle FH: prostate cancer Paternal Grandmother Uterine cancer Brother CVA (cerebral vascular accident) Eye cancer Myocardial infarct Son Bipolar 1 disorder Family/Other Mental health disorder Maternal Grandfather Myocardial infarct Social History Housing: Apartment Alcohol intake: never Patient Tobacco Use Status: Never used Tobacco e-Cigarette/Vaping Use: Never Used Second Hand Smoke Exposure: No service: No Current occupational status: employed 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 Pain on flexion. Full range of motion, with minimal discomfort. Assessment & Plan Assessment & Plan (1) Sprain of left knee: Code(s): S83.92XA - Sprain of unspecified site of left knee, initial encounter Plan: Meloxicam called in. Keep the leg elevated. Medications: New meloxicam 15 mg PO DAILY 14 tabs 0RF Coding Level of Care Code Est Pt Level 3 (90168) Diagnoses Sprain of left knee S83.92XA
== END 2023-07-18 12:54 | disposition home or self-care (01) ==
PROVIDERS: PCP Internal Medicine; Visit Provider Internal Medicine
DX: S83.92XA Sprain of unspecified site of left knee, initial encounter (principal)
CPT/HCPCS: 99213

== ENCOUNTER 2023-08-03 09:34 | Outpatient (AMB) | payer OTHER, SELFPAY ==
[2023-08-03 09:39] VITALS: BP 122/76; PULSE 59; TEMP 36.8; O2SAT 97; BMI 34.2
--- NOTE | 2023-08-03 09:39 | MHC.OFFWIV ---
Intake Vital Signs 08/03/23 09:39 Height 5 ft 2 in Weight 187 lb BMI 34.2 BP 122/76 Blood Pressure Location Rt brachial Position Sitting Pulse 59 Pulse Source Pulse Oximeter Temp 98.3 F Temp Source Oral Pulse Oximetry (%) 97 Oxygen Delivery Method Room Air Intake Visit Reasons: EST/sore throat/diarreah(lobby masked) Intake Note: pt is here for c.o diarrhea Patient Tobacco Use Status: Never used Tobacco Allergies codeine Allergy (Unknown, Verified 08/03/23 09:51) anxious/itchy oxycodone Allergy (Unknown, Verified 08/03/23 09:51) nausea Do you need a note to return to daycare/school/sports/work: Yes HPI HPI Comments History of Present Illness Details 58 y/o female who presents to the walk in clinic with c/o sorethroat and diarrhea. Reports that symptoms started few weeks ago. She has been taking OTC medications with some relief. [facility] Medical History Left knee pain History of torn meniscus of left knee Cervical cancer screening Colon cancer screening Cholelithiasis Obesity (BMI 30-39.9) Hypothyroid Surgical History History of laparoscopic cholecystectomy History of tubal ligation Family History Father Alzheimers disease Mother Diabetes Hypertension Maternal Grandmother Liver cancer Bipolar 1 disorder Maternal Aunt Lung cancer Maternal Uncle FH: prostate cancer Paternal Grandmother Uterine cancer Brother CVA (cerebral vascular accident) Eye cancer Myocardial infarct Son Bipolar 1 disorder Family/Other Mental health disorder Maternal Grandfather Myocardial infarct Social History Housing: Apartment Alcohol intake: never Patient Tobacco Use Status: Never used Tobacco e-Cigarette/Vaping Use: Never Used Second Hand Smoke Exposure: No service: No Current occupational status: employed 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 Current occupational exposures/hazards: No Cognitive needs: No Hearing needs: No Vision needs: No Female Reproductive History Menstrual Age of Menarche: 15 Review of Systems Const All systems reviewed & are unremarkable except as noted in HPI and below Physical Exam Vital Signs: Last Vital Signs Temp 98.3 F 08/03/23 09:39 Pulse 59 08/03/23 09:39 BP 122/76 08/03/23 09:39 Pulse Ox 97 08/03/23 09:39 Oxygen Delivery Method Room Air 08/03/23 09:39 BMI result Body Mass Index 34.2 Const General: no acute distress HEENT Head: Yes normocephalic Ears: TM's normal bilaterally General nose exam: Normal nares present, Normal nasal mucous membranes and turbinates present and No nasal discharge present Face and sinus: Yes sinuses nontender Mouth: moist mucous membranes Throat: Yes posterior oropharynx normal Resp Effort & Inspection: normal respiratory effort Auscultation: clear to auscultation bilaterally Cardio Rate: regular rate Rhythm: regular rhythm Assessment & Plan Assessment & Plan (1) Acute pharyngitis: Code(s): J02.9 - Acute pharyngitis, unspecified Qualifiers: Pharyngitis/tonsillitis etiology: other specified organisms Qualified Code(s): J02.8 - Acute pharyngitis due to other specified organisms Plan: - Rest and hydrate well with warm fluids. - Continue OTC medicine for symptom relief. Coding Level of Care Code Est Pt Level 2 (77665) Diagnoses Acute pharyngitis due to other specified organisms J02.8 Pharyngitis/tonsillitis etiology: other specified organisms Time Spent (min) 10
== END 2023-08-03 10:55 | disposition home or self-care (01) ==
PROVIDERS: PCP Internal Medicine; Visit Provider Nurse Practitioner Family
DX: J02.8 Acute pharyngitis due to other specified organisms (principal)
CPT/HCPCS: 99212

== ENCOUNTER 2023-10-18 15:23 | Outpatient (AMB) | payer OTHER, SELFPAY ==
--- NOTE | 2023-10-18 15:51 | A.OFFVIS_ITS ---
Intake Intake Visit Reasons: OV - left knee OA, last gel inj 02/10/23 Allergies codeine Allergy (Unknown, Verified 08/03/23 09:51) anxious/itchy oxycodone Allergy (Unknown, Verified 08/03/23 09:51) nausea HPI OV - left knee OA, last gel inj 02/10/23 HPI Details 58-year-old female who returns to the [facility] today for a follow-up of left knee pain. She reports her pain and limitations on her left knee has returned. She had her last gel injection on 02/10/23 which provided her relief for 9 months. She would like to repeat the gel injection. [facility] Medical History Left knee pain History of torn meniscus of left knee Cervical cancer screening Colon cancer screening Cholelithiasis Obesity (BMI 30-39.9) Hypothyroid Surgical History History of laparoscopic cholecystectomy History of tubal ligation Family History Father Alzheimers disease Mother Diabetes Hypertension Maternal Grandmother Liver cancer Bipolar 1 disorder Maternal Aunt Lung cancer Maternal Uncle FH: prostate cancer Paternal Grandmother Uterine cancer Brother CVA (cerebral vascular accident) Eye cancer Myocardial infarct Son Bipolar 1 disorder Family/Other Mental health disorder Maternal Grandfather Myocardial infarct Social History Housing: Apartment Alcohol intake: never Patient Tobacco Use Status: Never used Tobacco e-Cigarette/Vaping Use: Never Used Second Hand Smoke Exposure: No service: No Current occupational status: employed 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 Tenderness along the medial and lateral joint line. Full ROM with crepitus. Negative Faisal?s. No ligamentous laxity. NVI. Office Procedures Joint Injection/Drain Joint Injection/Drain Primary Site: left knee Prep: site was prepped using aseptic technique, ethochloride spray was applied and injection warnings given Injected: 80 mg of, DepoMedrol, with 8 mL of, 1% plain lidocaine and in the joint Approach Used: anterolateral Procedure: The patient tolerated the procedure well and there was some relief with the local anesthesia Coding 71524 - Glenohumeral/Tronchanteric Bursa/Intraarticular Procedure code (CPT) selection complete Assessment & Plan Assessment & Plan (1) Primary osteoarthritis of left knee: Code(s): M17.12 - Unilateral primary osteoarthritis, left knee Plan We discussed options today which include steroid injection. They did consent to move forward with the left knee injection, which was tolerated well. I recommended rest, ice and elevation and OTC anti-inflammatories PRN for discomfort. We will also obtain a prior authorization for gel injection for the left knee. If symptoms persist or worsens over the next 6-8 weeks, patient will contact the office, otherwise follow-up as needed. Patient Instructions: Scribed for Chrissy Moseley PA-C, by Toni Berrios senior medical director, on 10/18/2023 at 3:30 PM LI. Chrissy cMdonald PA-C, have personally reviewed and agree with the information entered by the scribe. Coding Level of Care Code Est Pt Level 3 (41596) Diagnoses Primary osteoarthritis of left knee M17.12 CPT Codes Coding - Joint 7: 90465 - Glenohumeral/Tronchanteric Bursa/Intraarticular ([id number])
== END 2023-10-18 16:07 | disposition home or self-care (01) ==
PROVIDERS: PCP Internal Medicine; Visit Provider Physician Assistant
DX: M17.12 Unilateral primary osteoarthritis, left knee (principal)
CPT/HCPCS: 20610; 99213

== ENCOUNTER → 2023-10-18 15:23 | Outpatient (BNVA) | payer OTHER, SELFPAY | PROVIDERS: PCP Internal Medicine; Visit Provider Physician Assistant | DX: M17.12 Unilateral primary osteoarthritis, left knee (principal) | CPT/HCPCS: 20610; 99212; J1040 ==

== ENCOUNTER 2023-10-21 08:17 | Outpatient (REF) | payer OTHER, SELFPAY ==
[2023-10-21 08:38] LABS: MANUAL DIFF FLAG NO
[2023-10-21 09:29] LABS: Basophils Absolute Auto 0.1 X10*3/uL (0.0-0.2); Basophils Percent Auto 0.9 % (0-2); Eosinophils Absolute Auto 0.1 X10*3/uL (0.0-0.4); Eosinophils Percent Auto 1.7 % (0-4); Hematocrit 40.7 % (37.0-47.0); Hemoglobin 13.5 g/dl (12.0-16.0); Imm Gran Abs Auto 0.02 X10*3/uL (0.00-0.03); Imm Gran Pct Auto 0.3 % (0.0-0.4); Lymphocytes Absolute Auto 2.1 X10*3/uL (1.2-4.9); Lymphocytes Percent Auto 26.8 % (20-40); Mean Corpuscular HGB Conc 33.2 g/dl (31.0-35.0); Mean Corpuscular Hemoglobin 30.4 pg (27.0-33.0); Mean Corpuscular Volume 91.7 fL (80.0-98.0); Mean Platelet Volume 11.3 fL (9.4-12.3); Monocytes Absolute Auto 0.5 X10*3/uL (0.1-1.2); Monocytes Percent Auto 6.6 % (2-11); Neutrophils Percent Auto 63.7 % (45-73); Platelet Count 258 X10*3/uL (160-400); Red Blood Count 4.44 X10*6/uL (4.20-5.50); Red Cell Distribution Width 12.9 % (11.0-16.0); White Blood Count 7.8 X10*3/uL (4.8-10.8)
[2023-10-21 10:02] LABS: Alanine Aminotransferase 12 U/L (0-31); Albumin Level 4.1 g/dL (3.5-5.0); Alkaline Phosphatase 84 U/L (39-117); Anion Gap 10 (12-20); Aspartate Amino Transferase 15 U/L (5-31); Bilirubin Total 1.1 mg/dL (0.0-1.0); Blood Urea Nitrogen 18 mg/dL (9-16); Calcium 9.3 mg/dL (8.4-10.2); Carbon Dioxide 28 mmol/L (22-29); Chloride 106 mmol/L (96-108); Cholesterol 155 mg/dL (<200); Estimated Glomerular Filt Rate > 60; Glucose Random 91 mg/dL (60-115); HDL Cholesterol 50 mg/dL (>40); LDL Cholesterol Calculated 90 mg/dL (<100); Potassium 3.9 mmol/L (3.3-5.1); Sodium 140 mmol/L (135-145); Triglycerides 77 mg/dL (<150)
[2023-10-21 10:21] LABS: Free T4 (Free Thyroxine) 1.27 ng/dL (0.71-1.85); Thyroid Stimulating Hormone 0.53 uIU/mL (0.32-4.0); Vitamin D 25-OH Total 48.1 ng/mL (>30)
[2023-10-21 10:26] LABS: Folate 10.7 ng/mL (> or = 4.0); Vitamin B12 934 pg/mL (200-900)
== END 2023-10-21 08:18 | disposition home or self-care (01) ==
LOC: HO.LAB 08:17
PROVIDERS: PCP Internal Medicine; Visit Provider Internal Medicine
DX: E03.9 Hypothyroidism, unspecified (principal); E78.00 Pure hypercholesterolemia, unspecified
CPT/HCPCS: 36415; 80053; 80061; 82306; 82607; 82746; 84439; 84443; 85025

== ENCOUNTER 2023-10-26 15:51 | Outpatient (AMB) | payer OTHER, SELFPAY ==
[2023-10-26 16:14] VITALS: BP 130/78; PULSE 58; O2SAT 99; BMI 33.8
--- NOTE | 2023-10-26 16:14 | MHC.PC.OV ---
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 Allergies codeine Allergy (Unknown, Verified 10/26/23 16:14) anxious/itchy oxycodone Allergy (Unknown, Verified 10/26/23 16:14) nausea Medication List - Last Reconciled 10/26/23 by Lindsey Carter MD ascorbate calcium (vitamin C) 500 mg PO DAILY cholecalciferol (vitamin D3) 25 mcg PO DAILY meloxicam 15 mg PO DAILY Synthroid (levothyroxine) 150 mcg PO DAILY 90 days NS Tobacco use date assessed: 10/26/23 Dental Screening Dental Screen Date: 10/26/23 Did you have a dental visit in the last 12 months?: Yes Did you have a dental problem in the last 6 months where you did not have access to dental care?: No Was dental information given to patient?: Patient has dentist HPI PE, hypothyroid HPI Details 58-year-old obese female with hypothyroidism hypertension knee osteoarthritis last seen in April 2023. Patient is here for physical exam review of the notes patient has seen Orthopedics for the osteoarthritis had injection done in left knee. Has had urgent visits in July for pharyngitis June for the knee left June for viral infection [facility] Medical History Left knee pain History of torn meniscus of left knee Cervical cancer screening Colon cancer screening Cholelithiasis Obesity (BMI 30-39.9) Hypothyroid Surgical History History of laparoscopic cholecystectomy History of tubal ligation Family History (Updated 10/26/23 @ 16:42 by Lindsey Carter MD) Father Alzheimers disease Mother Diabetes Hypertension Maternal Grandmother Liver cancer Bipolar 1 disorder Maternal Aunt Lung cancer Maternal Uncle FH: prostate cancer Paternal Grandmother Uterine cancer Brother CVA (cerebral vascular accident) Eye cancer Myocardial infarct Son Bipolar 1 disorder Family/Other Mental health disorder Maternal Grandfather Myocardial infarct Brother Myocardial infarct Social History Housing: Apartment Alcohol intake: never Patient Tobacco Use Status: Never used Tobacco e-Cigarette/Vaping Use: Never Used Second Hand Smoke Exposure: No service: No Current occupational status: employed 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 1. Little interest or pleasure in doing things: not at all 2. Feeling down, depressed, or hopeless: not at all 3. Trouble falling or staying asleep, or sleeping too much: not at all 4. Feeling tired or having little energy: not at all 5. Poor appetite or overeating: not at all 6. Feeling bad about yourself - or that you are a failure or have let yourself or your family down: not at all 7. Trouble concentrating on things, such as reading the newspaper or watching television: not at all 8. Moving or speaking so slowly that other people could have noticed. Or the opposite - being so fidgety or restless that you have been moving around a lot more than usual: not at all 9. Thoughts that you would be better off or of hurting yourself in some way: not at all Total score: 0 Depression Screening Interpretation: Negative Depression Screening Done: Yes 92092 - PHQ-9 Billing: Yes Source: Developed by Drs. Barak Elise, Brandi Rich, Sameer Ceballos and colleagues, with an educational rodrick from [employer]. Thrive Questionnaire Date Thrive assessed: 10/26/23 I am a: Patient What is your living situation today?: I have a steady place to live Within the past 12 months, did the food you bought not last and you didn't have the money to get more?: Never true Within the past 12 months, did you worry whether your food would run out before you got money to buy more?: Never true Do you have trouble paying for medicines?: No Do you have trouble getting transportation to medical appointments?: No Do you have trouble paying your heating and electricity bill?: No Do you have trouble taking care of your child, family member or friend?: No Do you have trouble with day-to-day activities such as bathing, preparing meals, shopping, managing finances, etc.?: No Are you currently unemployed and looking for a job?: No Are you interested in more education?: No Please select the resources that you would like help with: None Currently or been in a relationship where the following occur: no concerns reported THRIVE Score: 0 AUDIT C Alcohol Use Questionnaire (AUDIT-C) 1. How often do you have a drink containing alcohol?: Never Total Score: 0 KATERYNA-7 AMB Questionnaire KATERYNA-7 Date KATERYNA - 7 assessed: 10/26/23 Feeling nervous, anxious, or on edge: 0 = Not at all Not being able to stop or control worryin = Not at all Worrying too much about different things: 0 = Not at all Trouble relaxin = Not at all Being so restless that it is hard to sit still: 0 = Not at all Becoming easily annoyed or irritable: 0 = Not at all Feeling afraid as if something awful might happen: 0 = Not at all Total KATERYNA-7 score (0-4 normal; 5-9 mild; 10-14 moderate; 15-21 severe): 0 Source: Developed by Drs. Barak Elise, Brandi Rich, Sameer Ceballos and colleagues, with an educational rodrick from [employer]. KATERYNA-7 Assessment Billing KATERYNA-7 Assessment Tool: KATERYNA-7 Assessment 19626 Review of Systems Const Denies poor appetite and Denies weakness Eyes Denies no additional complaints ENT Reports Normal hearing present, Denies dizziness, Denies nasal congestion, Denies tinnitus and Denies sore throat Card Denies chest pain, Denies syncope, Denies rapid heart rate and Denies dyspnea Resp Denies cough and Denies dyspnea GI Denies change in stool character, Reports constipation, Denies diarrhea, Denies nausea and Denies vomiting Denies urinary frequency, Denies difficulty voiding and Denies dysuria Neuro Reports Normal hearing present, Denies confusion, Denies dizziness, Denies syncope and Denies weakness Psych Denies confusion Physical exam (Primary Care) Vital Signs: Last Vital Signs Pulse 58 10/26/23 16:14 BP 130/78 10/26/23 16:14 Pulse Ox 99 10/26/23 16:14 Oxygen Delivery Method Room Air 10/26/23 16:14 BMI result Body Mass Index 33.8 Tobacco/Smoking Status: Tobacco use Status Tobacco use date assessed 10/26/23 10/26/23 16:18 Patient Tobacco Use Status Never used Tobacco 10/26/23 16:18 e-Cigarette/Vaping Use Never Used 10/26/23 16:18 PHQ-9: PHQ-9 Score PHQ-9: Total score 0 10/26/23 16:18 Depression Screening Interpretation: Negative Thrive Assessment: Date of Thrive Assessment Date Thrive assessed 10/26/23 10/26/23 16:18 Currently or been in a relationship where the following occur: no concerns reported Const General: No confusion Orientation/consciousness: No confusion HENMT Head: Yes normocephalic Ears: external ears normal and TM's normal bilaterally Face and sinus: Yes normal facial exam Mouth: moist mucous membranes Throat: Yes tonsils normal Eyes Conjunctivae: conjunctivae normal Pupils: Equal, round and reactive pupils present and Pupil accommodation reflex normal Direct Ophthalmoscopy: normal light reflex Neck Neck: No lymphadenopathy Thyroid: Thyroid normal Chest Chest palpation & inspection: normal inspection of the chest Resp Effort & Inspection: normal respiratory effort and no audible wheezes Auscultation: clear to auscultation bilaterally, no crackles, no wheezes and lung sounds not diminished Cardio Rate: regular rate Rhythm: regular rhythm Peripheral pulses: radial pulses present and dorsalis pedis present GI Palpation (GI): no masses Auscultation: normal bowel sounds and normoactive bowel sounds Rectal Exam - Female: deferred Skin General skin exam: no rashes or lesions noted Rashes: no rashes Neuro General: No confusion Cranial nerves: Yes Equal, round and reactive pupils present and Yes Normal hearing present Cognition (Neuro): normal cognition Gait exam (Neuro): Normal gait present Motor exam (neuro): 5/5 motor strength present throughout Deep tendon reflexes (DTR's): Right brachioradialis reflex intensity grade: 2+, Left brachioradialis reflex intensity grade: 2+, Right patellar reflex intensity grade: 2+ and Left patellar reflex intensity grade: 2+ Extrem General: No edema Assessment and Plan Assessment & Plan (1) Annual physical exam: Code(s): Z00.00 - Encounter for general adult medical examination without abnormal findings (2) Obesity (BMI 30-39.9): Code(s): E66.9 - Obesity, unspecified Plan: Diet and exercise (3) Hypothyroid: Code(s): E03.9 - Hypothyroidism, unspecified Qualifiers: Hypothyroidism type: acquired Qualified Code(s): E03.9 - Hypothyroidism, unspecified Plan: Continue with thyroid medication (4) Primary osteoarthritis of left knee: Code(s): M17.12 - Unilateral primary osteoarthritis, left knee Plan: Patient has had a gel injection under Orthopedics Orders: Referrals Software Configuration Manager Nutrition Referral E66.9 - Obesity, unspecified Coding Level of Care Code Est Pt Prev Care 40-64y(48659) Diagnoses Annual physical exam Z00.00 Obesity (BMI 30-39.9) E66.9 Acquired hypothyroidism E03.9 Hypothyroidism type: acquired Primary osteoarthritis of left knee M17.12 Additional Codes KATERYNA-7 Assessment Billing - KATERYNA-7 Assessment Tool: KATERYNA-7 Assessment 82095 ([id number])
== END 2023-10-26 16:56 | disposition home or self-care (01) ==
PROVIDERS: PCP Internal Medicine; Visit Provider Internal Medicine
DX: Z00.00 Encounter for general adult medical examination without abnormal findings (principal); E03.9 Hypothyroidism, unspecified; E66.9 Obesity, unspecified; Z68.33 Body mass index [BMI] 33.0-33.9, adult
CPT/HCPCS: 99396

== ENCOUNTER 2023-11-02 09:18 | Outpatient (AMB) | payer OTHER, SELFPAY ==
[2023-11-02 09:33] VITALS: BMI 33.5
--- NOTE | 2023-11-02 09:33 | A.OFFVIS_ITS ---
Intake VS Expanded 11/02/23 09:33 11/03/23 22:48 Height 5 ft 2 in 5 ft 2 in Weight 183 lb 6.793 oz 183 lb BMI 33.5 33.5 Intake Visit Reasons: Obesity Allergies codeine Allergy (Unknown, Verified 10/26/23 16:14) anxious/itchy oxycodone Allergy (Unknown, Verified 10/26/23 16:14) nausea HPI Nutrition Presentation Details PT presents for MNT for obesity. The Pt was referred by Dr. Carter Pt reports goal weight 160 lbs Pt reports working on reducing on snacks/emtpy christine foods Typical meal 7: 30 am oatmeal and water 12: Taiwanese bread ham/cheese, water 4pm: white rice/baked chicken 2 cookies snack cone ice cram and man s food frequency fish per week: tuna casserole /1x/wk fruits: smoothies (spinach/yogurt/milk ) 3 times/day vegetables: daily (in smoothies) milk: 2 % milk etoh: denies smoking : denies physical activity: daily life activities RMF-Mhgiumb-Il.Jeor Equation Height 5 ft 2 in Weight 183 lb Resting Metabolic Rate 1376.97 Calculated Activity Level Sedentary Calories Needed to Maintain Weight 1652.36 Diagnosis Nutrition problem #1 excessive energy intake As related to (etiology) #1 diagnosis As evidenced by (sign/symptom) #1 knowledge deficit of diet Most Recent Diabetes Results: Cholesterol 155 mg/dL (<200) 10/21/23 HDL Cholesterol 50 mg/dL (>40) 10/21/23 Triglycerides 77 mg/dL (<150) 10/21/23 Creatinine 0.84 mg/dL (0.5-1.4) 10/21/23 Blood Urea Nitrogen 18 mg/dL (9-16) H 10/21/23 Sodium 140 mmol/L (135-145) 10/21/23 Potassium 3.9 mmol/L (3.3-5.1) 10/21/23 Chloride 106 mmol/L (96-108) 10/21/23 Carbon Dioxide 28 mmol/L (22-29) 10/21/23 Calcium 9.3 mg/dL (8.4-10.2) 10/21/23 AST 15 U/L (5-31) 10/21/23 ALT 12 U/L (0-31) 10/21/23 Total Protein 7.0 g/dL (6.5-8.0) 10/21/23 Albumin 4.1 g/dL (3.5-5.0) 10/21/23 [facility] Medical History Left knee pain History of torn meniscus of left knee Cervical cancer screening Colon cancer screening Cholelithiasis Obesity (BMI 30-39.9) Hypothyroid Surgical History History of laparoscopic cholecystectomy History of tubal ligation Family History (Updated 10/26/23 @ 16:42 by Lindsey Carter MD) Father Alzheimers disease Mother Diabetes Hypertension Maternal Grandmother Liver cancer Bipolar 1 disorder Maternal Aunt Lung cancer Maternal Uncle FH: prostate cancer Paternal Grandmother Uterine cancer Brother CVA (cerebral vascular accident) Eye cancer Myocardial infarct Son Bipolar 1 disorder Family/Other Mental health disorder Maternal Grandfather Myocardial infarct Brother Myocardial infarct Social History Housing: Apartment Alcohol intake: never Patient Tobacco Use Status: Never used Tobacco e-Cigarette/Vaping Use: Never Used Second Hand Smoke Exposure: No service: No Current occupational status: employed 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 Current occupational exposures/hazards: No Cognitive needs: No Hearing needs: No Vision needs: No Female Reproductive History Menstrual Age of Menarche: 15 Assessment & Plan Assessment & Plan (1) Obesity (BMI 30-39.9): Code(s): E66.9 - Obesity, unspecified Plan: Wt: 83 Kg ( 10/2023 ) Est kcal needs as per MSJ: 1600 (40% carb, 30% protein/fat) Est fluid needs as per 30 ml/d: 2500 Est prot per day as per 1 g/kg bw: 83 Recommend fiber intake : 8-10 g per day and gradually increase to 25-28 g per day for women and 35-38 g for men or as tolerated Recommend sodium intake per day : less than 2000 mg Educated patient on: ( R = reviewed V = verbalizes understanding N/R = needs review N/A = not applicable * Food sources of carbohydrate, adequate serving sizes and its role in various health conditions: R * Differences between complex carbohydrates a simple carbohydrates, role of fiber in diet: R * Lean protein sources of foods: R V * Differences between types of fats and role in diet (mono on saturated fat fatty acids, saturated fatty acids, trans fats): R basic low fat * Food sources of sodium in salt and healthy modifications for heart health in kidney health: NR * Vitamins and minerals: N/R * Healthy plate method concept: R * Physical activity: Benefits a precaution: R * Patient Instructions: Aim at having 2 fruits per day (reducing on empty calorie foods: pastries and the like) Practice mindful eating see 1600 christine meal plan as reference Coding Level of Care Code Nutr Indiv Intake (15921) Diagnoses Obesity (BMI 30-39.9) E66.9 Time Spent (min) 30
[2023-11-03 22:48] VITALS: BMI 33.5
== END 2023-11-02 10:03 | disposition home or self-care (01) ==
PROVIDERS: PCP Internal Medicine; Visit Provider Dietitian, Registered
DX: E66.9 Obesity, unspecified (principal)

== ENCOUNTER → 2023-11-02 09:18 | Outpatient (BNVA) | payer OTHER, SELFPAY | PROVIDERS: PCP Internal Medicine; Visit Provider Dietitian, Registered | DX: E66.9 Obesity, unspecified (principal); Z68.33 Body mass index [BMI] 33.0-33.9, adult | CPT/HCPCS: 97802 ==

== ENCOUNTER 2023-11-23 08:46 | Outpatient (AMB) | payer OTHER, SELFPAY ==
[2023-11-23 08:58] VITALS: BMI 33.7
--- NOTE | 2023-11-23 08:58 | A.OFFVIS_ITS ---
Intake VS Expanded 11/23/23 08:58 Height 5 ft 2 in Weight 184 lb 4.903 oz BMI 33.7 Intake Visit Reasons: Obesity Allergies codeine Allergy (Unknown, Verified 10/26/23 16:14) anxious/itchy oxycodone Allergy (Unknown, Verified 10/26/23 16:14) nausea HPI Nutrition Presentation Details Pt presents for MNT f/u for obesity pt reports working on dietary modifications gradually and starting to engage in walking at least once a week 20-30 min Most Recent Diabetes Results: Cholesterol 155 mg/dL (<200) 10/21/23 HDL Cholesterol 50 mg/dL (>40) 10/21/23 Triglycerides 77 mg/dL (<150) 10/21/23 Creatinine 0.84 mg/dL (0.5-1.4) 10/21/23 Blood Urea Nitrogen 18 mg/dL (9-16) H 10/21/23 Sodium 140 mmol/L (135-145) 10/21/23 Potassium 3.9 mmol/L (3.3-5.1) 10/21/23 Chloride 106 mmol/L (96-108) 10/21/23 Carbon Dioxide 28 mmol/L (22-29) 10/21/23 Calcium 9.3 mg/dL (8.4-10.2) 10/21/23 AST 15 U/L (5-31) 10/21/23 ALT 12 U/L (0-31) 10/21/23 Total Protein 7.0 g/dL (6.5-8.0) 10/21/23 Albumin 4.1 g/dL (3.5-5.0) 10/21/23 [facility] Medical History Left knee pain History of torn meniscus of left knee Cervical cancer screening Colon cancer screening Cholelithiasis Obesity (BMI 30-39.9) Hypothyroid Surgical History History of laparoscopic cholecystectomy History of tubal ligation Family History (Updated 10/26/23 @ 16:42 by Lindsey Carter MD) Father Alzheimers disease Mother Diabetes Hypertension Maternal Grandmother Liver cancer Bipolar 1 disorder Maternal Aunt Lung cancer Maternal Uncle FH: prostate cancer Paternal Grandmother Uterine cancer Brother CVA (cerebral vascular accident) Eye cancer Myocardial infarct Son Bipolar 1 disorder Family/Other Mental health disorder Maternal Grandfather Myocardial infarct Brother Myocardial infarct Social History Housing: Apartment Alcohol intake: never Patient Tobacco Use Status: Never used Tobacco e-Cigarette/Vaping Use: Never Used Second Hand Smoke Exposure: No service: No Current occupational status: employed 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 Current occupational exposures/hazards: No Cognitive needs: No Hearing needs: No Vision needs: No Female Reproductive History Menstrual Age of Menarche: 15 Assessment & Plan Assessment & Plan (1) Obesity (BMI 30-39.9): Code(s): E66.9 - Obesity, unspecified Plan: Wt: 83 Kg ( 10/2023 , 11/2023 ) Est kcal needs as per MSJ: 1600 (40% carb, 30% protein/fat) Est fluid needs as per 30 ml/d: 2500 Est prot per day as per 1 g/kg bw: 83 Recommend fiber intake : 8-10 g per day and gradually increase to 25-28 g per day for women and 35-38 g for men or as tolerated Recommend sodium intake per day : less than 2000 mg Educated patient on: ( R = reviewed V = verbalizes understanding N/R = needs review N/A = not applicable * Food sources of carbohydrate, adequate serving sizes and its role in various health conditions: R * Differences between complex carbohydrates a simple carbohydrates, role of fiber in diet: R * Lean protein sources of foods: R V * Differences between types of fats and role in diet (mono on saturated fat fatty acids, saturated fatty acids, trans fats): R basic low fat * Food sources of sodium in salt and healthy modifications for heart health in kidney health: NR * Vitamins and minerals: N/R * Healthy plate method concept: R * Physical activity: Benefits a precaution: R * Patient Instructions: Continue working on reducing on sugar (pastries/candies and similar food/beverages Work on consistent physical activity goal 30 min walk at least 3 times a week Coding Level of Care Code Nutr Indiv Subseq (98815) Diagnoses Obesity (BMI 30-39.9) E66.9 Time Spent (min) 15
== END 2023-11-23 09:12 | disposition home or self-care (01) ==
PROVIDERS: PCP Internal Medicine; Visit Provider Dietitian, Registered
DX: E66.9 Obesity, unspecified (principal)

== ENCOUNTER → 2023-11-23 08:46 | Outpatient (BNVA) | payer OTHER, SELFPAY | PROVIDERS: PCP Internal Medicine; Visit Provider Dietitian, Registered | DX: E66.9 Obesity, unspecified (principal); Z68.33 Body mass index [BMI] 33.0-33.9, adult | CPT/HCPCS: 97803 ==

== ENCOUNTER 2023-12-28 08:51 | Outpatient (AMB) | payer OTHER, SELFPAY ==
[2023-12-28 08:58] VITALS: BMI 33.3
--- NOTE | 2023-12-28 08:58 | A.OFFVIS_ITS ---
VS Expanded 12/28/23 08:58 Height 5 ft 2 in Weight 182 lb 1.629 oz BMI 33.3 Intake Visit Reasons: Obesity Allergies codeine Allergy (Unknown, Verified 10/26/23 16:14) anxious/itchy oxycodone Allergy (Unknown, Verified 10/26/23 16:14) nausea Nutrition Presentation Details: Pt presents for MNT f/u for obesity Pt report she started food log (lose it) , working on reducing calories to 1400 BS Monitoring Most Recent Diabetes Results: Cholesterol 155 mg/dL (<200) 10/21/23 HDL Cholesterol 50 mg/dL (>40) 10/21/23 Triglycerides 77 mg/dL (<150) 10/21/23 Creatinine 0.84 mg/dL (0.5-1.4) 10/21/23 Blood Urea Nitrogen 18 mg/dL (9-16) H 10/21/23 Sodium 140 mmol/L (135-145) 10/21/23 Potassium 3.9 mmol/L (3.3-5.1) 10/21/23 Chloride 106 mmol/L (96-108) 10/21/23 Carbon Dioxide 28 mmol/L (22-29) 10/21/23 Calcium 9.3 mg/dL (8.4-10.2) 10/21/23 AST 15 U/L (5-31) 10/21/23 ALT 12 U/L (0-31) 10/21/23 Total Protein 7.0 g/dL (6.5-8.0) 10/21/23 Albumin 4.1 g/dL (3.5-5.0) 10/21/23 [facility] Medical History Left knee pain History of torn meniscus of left knee Cervical cancer screening Colon cancer screening Cholelithiasis Obesity (BMI 30-39.9) Hypothyroid Surgical History History of laparoscopic cholecystectomy History of tubal ligation Family History (Updated 10/26/23 @ 16:42 by Lindsey Carter MD) Father Alzheimers disease Mother Diabetes Hypertension Maternal Grandmother Liver cancer Bipolar 1 disorder Maternal Aunt Lung cancer Maternal Uncle FH: prostate cancer Paternal Grandmother Uterine cancer Brother CVA (cerebral vascular accident) Eye cancer Myocardial infarct Son Bipolar 1 disorder Family/Other Mental health disorder Maternal Grandfather Myocardial infarct Brother Myocardial infarct Social History Housing: Apartment Alcohol intake: never Patient Tobacco Use Status: Never used Tobacco e-Cigarette/Vaping Use: Never Used Second Hand Smoke Exposure: No service: No Current occupational status: employed 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 Current occupational exposures/hazards: No Cognitive needs: No Hearing needs: No Vision needs: No Female Reproductive History Menstrual Age of Menarche: 15 Assessment & Plan Assessment & Plan (1) Obesity (BMI 30-39.9): Code(s): E66.9 - Obesity, unspecified Category: Medical Plan: Wt: 83 Kg ( 10/2023 , 11/2023 , 12/2023 ) Est kcal needs as per MSJ: 1600 (40% carb, 30% protein/fat) Est fluid needs as per 30 ml/d: 2500 Est prot per day as per 1 g/kg bw: 83 Recommend fiber intake : 8-10 g per day and gradually increase to 25-28 g per day for women and 35-38 g for men or as tolerated Recommend sodium intake per day : less than 2000 mg Educated patient on: ( R = reviewed V = verbalizes understanding N/R = needs review N/A = not applicable * Food sources of carbohydrate, adequate serving sizes and its role in various health conditions: R * Differences between complex carbohydrates a simple carbohydrates, role of fiber in diet: R * Lean protein sources of foods: R V * Differences between types of fats and role in diet (mono on saturated fat fatty acids, saturated fatty acids, trans fats): R basic low fat * Food sources of sodium in salt and healthy modifications for heart health in kidney health: R * Vitamins and minerals: N/R * Healthy plate method concept: R * Physical activity: Benefits a precaution: R * Patient Instructions: Continue working on reducing portions of simple sugars (pastries/candies) Keep logging your food, measure food portions for better estimate of calories and its distribution Keep hydrated, having water with meals Coding Level of Care Code Nutr Indiv Subseq (96386) Diagnoses Obesity (BMI 30-39.9) E66.9 Time Spent (min) 15
== END 2023-12-28 09:24 | disposition home or self-care (01) ==
PROVIDERS: PCP Internal Medicine; Visit Provider Dietitian, Registered
DX: E66.9 Obesity, unspecified (principal)

== ENCOUNTER → 2023-12-28 08:51 | Outpatient (BNVA) | payer OTHER, SELFPAY | PROVIDERS: PCP Internal Medicine; Visit Provider Dietitian, Registered | DX: E66.9 Obesity, unspecified (principal); Z68.33 Body mass index [BMI] 33.0-33.9, adult | CPT/HCPCS: 97803 ==

== ENCOUNTER 2024-01-26 08:08 | Outpatient (AMB) | payer OTHER, SELFPAY ==
--- NOTE | 2024-01-26 08:12 | A.OFFVIS_ITS ---
Vital Signs 01/26/24 08:15 Height 5 ft 2 in Weight 192 lb BMI 35.1 Intake Visit Reasons: Left knee Euflexxa injection #1 Intake Note: Janki is a 58 year old female who presents today for a Left knee Euflexxa injection #1. Allergies codeine Allergy (Unknown, Verified 01/26/24 08:16) anxious/itchy oxycodone Allergy (Unknown, Verified 01/26/24 08:16) nausea HPI HPI Left knee Euflexxa injection #1 : Details: 58-year-old female who returns to the office today for a left knee Euflexxa gel injection #1. PFSH Medical History Left knee pain History of torn meniscus of left knee Cervical cancer screening Colon cancer screening Cholelithiasis Obesity (BMI 30-39.9) Hypothyroid Surgical History History of laparoscopic cholecystectomy History of tubal ligation Family History Father Alzheimers disease Mother Diabetes Hypertension Maternal Grandmother Liver cancer Bipolar 1 disorder Maternal Aunt Lung cancer Maternal Uncle FH: prostate cancer Paternal Grandmother Uterine cancer Brother CVA (cerebral vascular accident) Eye cancer Myocardial infarct Son Bipolar 1 disorder Family/Other Mental health disorder Maternal Grandfather Myocardial infarct Brother Myocardial infarct Social History Housing: Apartment Alcohol intake: never Patient Tobacco Use Status: Never used Tobacco e-Cigarette/Vaping Use: Never Used Second Hand Smoke Exposure: No service: No Current occupational status: employed 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 Current occupational exposures/hazards: No Cognitive needs: No Hearing needs: No Vision needs: No Female Reproductive History Menstrual Age of Menarche: 15 Review of Systems Const All systems reviewed & are unremarkable except as noted in HPI and below Physical Exam Vital Signs: BMI result Body Mass Index 35.1 Const General: cooperative and no acute distress Orientation/consciousness: patient oriented x3 Resp Effort & Inspection: normal respiratory effort and able to speak in complete sentences Cardio Peripheral pulses: Peripheral pulses 2+ throughout Neuro General: patient oriented x3 Extrem Other: Left knee: Skin intact, no erythema or joint effusion. Tenderness along the medial and lateral joint line. Full ROM with crepitus. Negative Faisal?s. No ligamentous laxity. NVI. ? Office Procedures Joint Injection/Drain Joint Injection/Drain Details: #1 euflexxa left knee Primary Site: left knee Prep: site was prepped using aseptic technique, ethochloride spray was applied and injection warnings given Injected: in the joint Approach Used: anterolateral Procedure: The patient tolerated the procedure well Coding 18216 - Glenohumeral/Tronchanteric Bursa/Intraarticular Procedure code (CPT) selection complete Assessment & Plan Assessment & Plan (1) Primary osteoarthritis of left knee: Code(s): M17.12 - Unilateral primary osteoarthritis, left knee Category: Medical Plan We discussed options today, which include Euflexxa gel injection. The patient did consent to move forward with the left knee Euflexxa gel injection #1, which was tolerated well. I recommended rest, ice, and elevation and OTC anti- inflammatories as needed for discomfort. If symptoms persist or worsen over the next 6-8 weeks, patient will contact the office, otherwise she will return in 1 week for Euflexxa gel injection #2. Patient Instructions: Scribed for Chrissy Moseley PA-C, by Toni Berrios medical sales consultant, on 01/26/2024 at 8:15 AM EST.? I, Chrissy Moseley PA-C, have personally reviewed and agree with the information entered by the scribe. Coding Level of Care Code Procedure Only Diagnoses Primary osteoarthritis of left knee M17.12 CPT Codes Coding - Joint 7: 62963 - Glenohumeral/Tronchanteric Bursa/Intraarticular ([id number])
[2024-01-26 08:15] VITALS: BMI 35.1
== END 2024-01-26 08:39 | disposition home or self-care (01) ==
PROVIDERS: PCP Internal Medicine; Visit Provider Physician Assistant
DX: M17.12 Unilateral primary osteoarthritis, left knee (principal)
CPT/HCPCS: 20610

== ENCOUNTER → 2024-01-26 08:08 | Outpatient (BNVA) | payer OTHER, SELFPAY | PROVIDERS: PCP Internal Medicine; Visit Provider Physician Assistant | DX: M17.12 Unilateral primary osteoarthritis, left knee (principal) | CPT/HCPCS: 20610; J7323 ==

== ENCOUNTER 2024-02-02 08:12 | Outpatient (AMB) | payer OTHER, SELFPAY ==
--- NOTE | 2024-02-02 08:40 | A.OFFVIS_ITS ---
Vital Signs 02/02/24 08:47 Height 5 ft 2 in Weight 192 lb BMI 35.1 Intake Visit Reasons: ov- Left knee Euflexxa #2 Intake Note: Janki is a 58 year old female who presents today for a Left knee Euflexxa injection #2. Patient has found relief with her first injection. Allergies codeine Allergy (Unknown, Verified 02/02/24 08:47) anxious/itchy oxycodone Allergy (Unknown, Verified 02/02/24 08:47) nausea HPI HPI ov- Left knee Euflexxa #2: Details: 58-year-old female who presents in the office today for a follow up of left knee and to obtain her second?Euflexxa injection in a series of 3.? ? While in the office today, the patient reported finding relief with the first injection with her mobility. She states she is able to bend her left knee better .? PFSH Medical History Left knee pain History of torn meniscus of left knee Cervical cancer screening Colon cancer screening Cholelithiasis Obesity (BMI 30-39.9) Hypothyroid Surgical History History of laparoscopic cholecystectomy History of tubal ligation Family History Father Alzheimers disease Mother Diabetes Hypertension Maternal Grandmother Liver cancer Bipolar 1 disorder Maternal Aunt Lung cancer Maternal Uncle FH: prostate cancer Paternal Grandmother Uterine cancer Brother CVA (cerebral vascular accident) Eye cancer Myocardial infarct Son Bipolar 1 disorder Family/Other Mental health disorder Maternal Grandfather Myocardial infarct Brother Myocardial infarct Social History Housing: Apartment Alcohol intake: never Patient Tobacco Use Status: Never used Tobacco e-Cigarette/Vaping Use: Never Used Second Hand Smoke Exposure: No service: No Current occupational status: employed 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 Current occupational exposures/hazards: No Cognitive needs: No Hearing needs: No Vision needs: No Female Reproductive History Menstrual Age of Menarche: 15 Review of Systems Const All systems reviewed & are unremarkable except as noted in HPI and below Physical Exam Vital Signs: BMI result Body Mass Index 35.1 Const General: cooperative, healthy appearing and no acute distress Resp Effort & Inspection: normal respiratory effort and able to speak in complete sentences Cardio Rate: regular rate Peripheral pulses: Peripheral pulses 2+ throughout GI Palpation (GI): Soft to palpation Skin Lesions: no lesions Rashes: no rashes Extrem Other: Left knee: Skin intact, no erythema or joint effusion. Tenderness along the medial and lateral joint line. Full ROM with crepitus. Negative Faisal?s. No ligamentous laxity. NVI. ? Office Procedures Joint Injection/Drain Joint Injection/Drain Primary Site: left knee (Euflexxa #2) Injected: in the joint Approach Used: anterolateral Procedure: The patient tolerated the procedure well, but had some pain with the injection and there was some relief with the local anesthesia Coding 02192 - Large joint Procedure code (CPT) selection complete Assessment & Plan Assessment & Plan (1) Primary osteoarthritis of left knee: Code(s): M17.12 - Unilateral primary osteoarthritis, left knee Category: Medical Plan Ms. Forman is a 58-year-old female who presents in the office today for a follow up of left knee and to obtain her second?Euflexxa injection in a series of 3.? ? While in the office today, the patient reported finding relief with the first injection with her mobility. She states she is able to bend her left knee better .? ? The patient was injection with her second Euflexxa injection in the left knee. The patient was explained the risk, benefits, and alternatives to receiving this injection. After receiving consent for the injection, the patient had the procedure done while in the office today. The patient tolerated the procedure well with no complications. Follow up will be in one week for the third Euflexxa injection, or sooner if needed.? Patient Instructions: Scribed by Юлия Burns pediatric medical assistant, for Janki Diaz PA-C on 02/02/2024 at 8:53 am, EST.? Coding Level of Care Code Procedure Only Diagnoses Primary osteoarthritis of left knee M17.12 CPT Codes Coding - 33524 Large joint: 18603 - Large joint ([id number])
[2024-02-02 08:47] VITALS: BMI 35.1
== END 2024-02-02 09:07 | disposition home or self-care (01) ==
PROVIDERS: PCP Internal Medicine; Visit Provider Physician Assistant
DX: M17.12 Unilateral primary osteoarthritis, left knee (principal)
CPT/HCPCS: 20610

== ENCOUNTER → 2024-02-02 08:12 | Outpatient (BNVA) | payer OTHER, SELFPAY | PROVIDERS: PCP Internal Medicine; Visit Provider Physician Assistant | DX: M17.12 Unilateral primary osteoarthritis, left knee (principal) | CPT/HCPCS: 20610; J7323 ==

== ENCOUNTER 2024-02-09 07:59 | Outpatient (AMB) | payer OTHER, SELFPAY ==
--- NOTE | 2024-02-09 08:02 | A.OFFVIS_ITS ---
Intake Visit Reasons: ov- left knee Euflexxa#3 Intake Note: Janki is a 58 year old female who presents to the office today for her Left knee Euflexxa injection #3. Allergies codeine Allergy (Unknown, Verified 02/09/24 08:03) anxious/itchy oxycodone Allergy (Unknown, Verified 02/09/24 08:03) nausea Medication List - Last Reconciled 02/09/24 by Chrissy Moseley PA-C ascorbate calcium (vitamin C) 500 mg PO DAILY cholecalciferol (vitamin D3) 25 mcg PO DAILY meloxicam 15 mg PO DAILY Synthroid (levothyroxine) 150 mcg PO DAILY 90 days NS HPI HPI ov- left knee Euflexxa#3: Details: 58-year-old female who returns to the office today for a left knee Euflexxa gel injection #3. PFSH Medical History Left knee pain History of torn meniscus of left knee Cervical cancer screening Colon cancer screening Cholelithiasis Obesity (BMI 30-39.9) Hypothyroid Surgical History History of laparoscopic cholecystectomy History of tubal ligation Family History Father Alzheimers disease Mother Diabetes Hypertension Maternal Grandmother Liver cancer Bipolar 1 disorder Maternal Aunt Lung cancer Maternal Uncle FH: prostate cancer Paternal Grandmother Uterine cancer Brother CVA (cerebral vascular accident) Eye cancer Myocardial infarct Son Bipolar 1 disorder Family/Other Mental health disorder Maternal Grandfather Myocardial infarct Brother Myocardial infarct Social History Housing: Apartment Alcohol intake: never Patient Tobacco Use Status: Never used Tobacco e-Cigarette/Vaping Use: Never Used Second Hand Smoke Exposure: No service: No Current occupational status: employed 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 Current occupational exposures/hazards: No Cognitive needs: No Hearing needs: No Vision needs: No Female Reproductive History Menstrual Age of Menarche: 15 Review of Systems Const All systems reviewed & are unremarkable except as noted in HPI and below Physical Exam Const General: cooperative, healthy appearing and no acute distress Resp Effort & Inspection: normal respiratory effort and able to speak in complete sentences Cardio Rate: regular rate Peripheral pulses: Peripheral pulses 2+ throughout GI Palpation (GI): Soft to palpation Skin Lesions: no lesions Rashes: no rashes Extrem Other: Left knee: Skin intact, no erythema or joint effusion. Tenderness along the medial and lateral joint line. Full ROM with crepitus. Negative Faisal?s. No ligamentous laxity. NVI. ? Office Procedures Joint Injection/Drain Joint Injection/Drain Details: euflexxa Primary Site: left knee Prep: site was prepped using aseptic technique, ethochloride spray was applied and injection warnings given Injected: in the joint Approach Used: anterolateral Procedure: The patient tolerated the procedure well Coding 76918 - Glenohumeral/Tronchanteric Bursa/Intraarticular Procedure code (CPT) selection complete Assessment & Plan Assessment & Plan (1) Primary osteoarthritis of left knee: Code(s): M17.12 - Unilateral primary osteoarthritis, left knee Category: Medical Plan We discussed options today, which include Euflexxa gel injection #3. The patient did consent to move forward with the left knee Euflexxa gel injection #3, which was tolerated well. I recommended rest, ice, and elevation and OTC anti- inflammatories as needed for discomfort. If symptoms persist or worsen over the next 6-8 weeks, patient will contact the office, otherwise follow-up as needed. ? Patient Instructions: Scribed for Chrissy Moseley PA-C, by Toni Berrios medical billing instructor, on 02/09/2024 at 8:15 AM EST.? I, Chrissy Moseley PA-C, have personally reviewed and agree with the information entered by the scribe. Coding Level of Care Code Procedure Only Diagnoses Primary osteoarthritis of left knee M17.12 CPT Codes Coding - Joint 7: 94420 - Glenohumeral/Tronchanteric Bursa/Intraarticular ([id number])
== END 2024-02-09 08:16 | disposition home or self-care (01) ==
PROVIDERS: PCP Internal Medicine; Visit Provider Physician Assistant
DX: M17.12 Unilateral primary osteoarthritis, left knee (principal)
CPT/HCPCS: 20610

== ENCOUNTER → 2024-02-09 07:59 | Outpatient (BNVA) | payer OTHER, SELFPAY | PROVIDERS: PCP Internal Medicine; Visit Provider Physician Assistant | DX: M17.12 Unilateral primary osteoarthritis, left knee (principal) | CPT/HCPCS: 20610; J7323 ==

== ENCOUNTER 2024-02-15 08:38 | Outpatient (AMB) | payer OTHER, SELFPAY ==
[2024-02-15 09:04] VITALS: BMI 32.4
--- NOTE | 2024-02-15 09:04 | A.OFFVIS_ITS ---
VS Expanded 02/15/24 09:04 Height 5 ft 2 in Weight 177 lb 0.499 oz BMI 32.4 Intake Visit Reasons: T2DM/CONFIRMED Allergies codeine Allergy (Unknown, Verified 02/09/24 08:03) anxious/itchy oxycodone Allergy (Unknown, Verified 02/09/24 08:03) nausea Nutrition Presentation Details: Pt presents for MNT f/u for obesity Pt reports continuing to work on reducing sugars in a consistent manner BS Monitoring Most Recent Diabetes Results: No Data to Display PFSH Medical History Left knee pain History of torn meniscus of left knee Cervical cancer screening Colon cancer screening Cholelithiasis Obesity (BMI 30-39.9) Hypothyroid Surgical History History of laparoscopic cholecystectomy History of tubal ligation Family History Father Alzheimers disease Mother Diabetes Hypertension Maternal Grandmother Liver cancer Bipolar 1 disorder Maternal Aunt Lung cancer Maternal Uncle FH: prostate cancer Paternal Grandmother Uterine cancer Brother CVA (cerebral vascular accident) Eye cancer Myocardial infarct Son Bipolar 1 disorder Family/Other Mental health disorder Maternal Grandfather Myocardial infarct Brother Myocardial infarct Social History Housing: Apartment Alcohol intake: never Patient Tobacco Use Status: Never used Tobacco e-Cigarette/Vaping Use: Never Used Second Hand Smoke Exposure: No service: No Current occupational status: employed 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 Current occupational exposures/hazards: No Cognitive needs: No Hearing needs: No Vision needs: No Female Reproductive History Menstrual Age of Menarche: 15 Assessment & Plan Assessment & Plan (1) Obesity (BMI 30-39.9): Code(s): E66.9 - Obesity, unspecified Category: Medical Plan: Pt's goal wt: 160 lbs (73 kg) Wt: 83 Kg ( 10/2023 , 11/2023 , 12/2023 ), 80 (01/2024) Est kcal needs as per MSJ: 1600 (40% carb, 30% protein/fat) Est fluid needs as per 30 ml/d: 2500 Est prot per day as per 1 g/kg bw: 83 Recommend fiber intake : 8-10 g per day and gradually increase to 25-28 g per day for women and 35-38 g for men or as tolerated Recommend sodium intake per day : less than 2000 mg Educated patient on: ( R = reviewed V = verbalizes understanding N/R = needs review N/A = not applicable * Food sources of carbohydrate, adequate serving sizes and its role in various health conditions: R * Differences between complex carbohydrates a simple carbohydrates, role of fiber in diet: R , V * Lean protein sources of foods: R V * Differences between types of fats and role in diet (mono on saturated fat fatty acids, saturated fatty acids, trans fats): R , v * Food sources of sodium in salt and healthy modifications for heart health in kidney health: R * Vitamins and minerals: R * Healthy plate method concept: R * Physical activity: Benefits a precaution: R * Patient Instructions: * Continue working on reducing sugars and including fiber rich foods in your diet (fruits/vegetables/whole grain foods) * Be mindful of high sodium foods , choose herbs/spices for flavors, see education material on low sodium concepts discussed and provided Coding Level of Care Code Nutr Indiv Subseq (70748) Diagnoses Obesity (BMI 30-39.9) E66.9 Time Spent (min) 20
== END 2024-02-15 09:25 | disposition home or self-care (01) ==
PROVIDERS: PCP Internal Medicine; Visit Provider Dietitian, Registered
DX: E66.9 Obesity, unspecified (principal)

== ENCOUNTER → 2024-02-15 08:38 | Outpatient (BNVA) | payer OTHER, SELFPAY | PROVIDERS: PCP Internal Medicine; Visit Provider Dietitian, Registered | DX: E66.9 Obesity, unspecified (principal); Z68.32 Body mass index [BMI] 32.0-32.9, adult; Z71.3 Dietary counseling and surveillance | CPT/HCPCS: 97803 ==

== ENCOUNTER 2024-05-16 09:44 | Outpatient (AMB) | payer OTHER, SELFPAY ==
[2024-05-16 10:13] VITALS: BMI 32.5
--- NOTE | 2024-05-16 10:13 | A.OFFVIS_ITS ---
VS Expanded 05/16/24 10:13 Height 5 ft 2 in Weight 177 lb 7.554 oz BMI 32.5 Intake Visit Reasons: obesity/Unable to lvm Allergies codeine Allergy (Unknown, Verified 02/09/24 08:03) anxious/itchy oxycodone Allergy (Unknown, Verified 02/09/24 08:03) nausea Nutrition Presentation Details: Pt presents for MNT f/u for obesity Pt reports engaging in a walking routine and reducing on fried foods , feels good BS Monitoring Most Recent Diabetes Results: No Data to Display PFSH Medical History Left knee pain History of torn meniscus of left knee Cervical cancer screening Colon cancer screening Cholelithiasis Obesity (BMI 30-39.9) Hypothyroid Surgical History History of laparoscopic cholecystectomy History of tubal ligation Family History Father Alzheimers disease Mother Diabetes Hypertension Maternal Grandmother Liver cancer Bipolar 1 disorder Maternal Aunt Lung cancer Maternal Uncle FH: prostate cancer Paternal Grandmother Uterine cancer Brother CVA (cerebral vascular accident) Eye cancer Myocardial infarct Son Bipolar 1 disorder Family/Other Mental health disorder Maternal Grandfather Myocardial infarct Brother Myocardial infarct Social History Housing: Apartment Alcohol intake: never Patient Tobacco Use Status: Never used Tobacco e-Cigarette/Vaping Use: Never Used Second Hand Smoke Exposure: No service: No Current occupational status: employed 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 Current occupational exposures/hazards: No Cognitive needs: No Hearing needs: No Vision needs: No Female Reproductive History Menstrual Age of Menarche: 15 Assessment & Plan Assessment & Plan (1) Obesity (BMI 30-39.9): Code(s): E66.9 - Obesity, unspecified Category: Medical Plan: Pt's goal wt: 160 lbs (73 kg) Wt: 83 Kg ( 10/2023 , 11/2023 , 12/2023 ), 80 (01/2024), (10/240 Est kcal needs as per MSJ: 1600 (40% carb, 30% protein/fat) Est fluid needs as per 30 ml/d: 2500 Est prot per day as per 1 g/kg bw: 83 Recommend fiber intake : 8-10 g per day and gradually increase to 25-28 g per day for women and 35-38 g for men or as tolerated Recommend sodium intake per day : less than 2000 mg Educated patient on: ( R = reviewed V = verbalizes understanding N/R = needs review N/A = not applicable * Food sources of carbohydrate, adequate serving sizes and its role in various health conditions: R * Differences between complex carbohydrates a simple carbohydrates, role of fiber in diet: R , V * Lean protein sources of foods: R V * Differences between types of fats and role in diet (mono on saturated fat fatty acids, saturated fatty acids, trans fats): R , v * Food sources of sodium in salt and healthy modifications for heart health in kidney health: R * Vitamins and minerals: R * Healthy plate method concept: R * Physical activity: Benefits a precaution: R * Patient Instructions: Continue physical activity as established, goal 150 min per week or as tolerated Keep hydrated at least 10 c of fluids/d (choose nutrient dense low calorie beverages) Include omega 3 sources of foods in diet in adequate portions (fish, nuts, seeds as example) Coding Level of Care Code Nutr Indiv Subseq (68005) Diagnoses Obesity (BMI 30-39.9) E66.9 Time Spent (min) 20
== END 2024-05-16 10:33 | disposition home or self-care (01) ==
PROVIDERS: PCP Internal Medicine; Visit Provider Dietitian, Registered
DX: E66.9 Obesity, unspecified (principal)

== ENCOUNTER → 2024-05-16 09:44 | Outpatient (BNVA) | payer OTHER, SELFPAY | PROVIDERS: PCP Internal Medicine; Visit Provider Dietitian, Registered | DX: E66.9 Obesity, unspecified (principal); Z71.3 Dietary counseling and surveillance; Z68.32 Body mass index [BMI] 32.0-32.9, adult | CPT/HCPCS: 97803 ==

== ENCOUNTER 2024-05-18 07:27 | Outpatient (REF) | payer OTHER, SELFPAY ==
--- NOTE | ~2024-05-18 | MM_ITS ---
EXAMINATION: MM SCREENING DIGITAL BREAST TOMOSYNTHESIS, BILATERAL CLINICAL INFORMATION: Screening. Asymptomatic. COMPARISON: Mammography: Comparison is made with available priors TECHNIQUE: Digital breast mammography with tomosynthesis is performed in both the craniocaudal and mediolateral oblique views along with computer-aided detection (CAD). FINDINGS: There are scattered areas of fibroglandular density (ACR BI-RADS breast composition Category b). There are no significant masses, abnormal calcifications, or other abnormalities. MM/MM tomosynthesis screening BI IMPRESSION: No mammographic evidence of malignancy. ASSESSMENT: BI-RADS BI-RADS 1 - Negative RECOMMENDATION: Routine annual mammography screening. 1 year F/U This examination should not preclude the clinical evaluation of a suspicious palpable abnormality. This patient's information was entered into a reminder system with a target due date for their next mammogram. Electronically signed by: Ellen Brantley DO 05/27/2024 08:51 AM LI
== END 2024-05-18 07:28 | disposition home or self-care (01) ==
LOC: HO.MAMMO 07:27
PROVIDERS: Visit Provider Internal Medicine
DX: Z12.31 Encounter for screening mammogram for malignant neoplasm of breast (principal)
CPT/HCPCS: 77063; 77067

== ENCOUNTER → 2024-05-18 07:45 | Outpatient (BNV) | payer OTHER, SELFPAY | PROVIDERS: Visit Provider Internal Medicine | DX: Z12.31 Encounter for screening mammogram for malignant neoplasm of breast (principal) | CPT/HCPCS: 77063; 77067 ==

== ENCOUNTER 2024-05-23 14:34 | Outpatient (AMB) | payer OTHER, SELFPAY ==
[2024-05-23 14:49] VITALS: BP 134/82; PULSE 56; O2SAT 99; BMI 32.2
--- NOTE | 2024-05-23 14:49 | A.OFFPC_ITS ---
Vital Signs 05/23/24 14:49 Height 5 ft 2 in Weight 176 lb BMI 32.2 BP 134/82 Blood Pressure Location Lt brachial Position Sitting Pulse 56 Pulse Source Pulse Oximeter Pulse Oximetry (%) 99 Oxygen Delivery Method Room Air Intake Visit Reasons: 6 Month Follow Up Intake Note: pt decline flu shot Roster Clerk Required: No Accompanied by: Self / Same As Patient Allergies codeine Allergy (Unknown, Verified 05/23/24 14:50) anxious/itchy oxycodone Allergy (Unknown, Verified 05/23/24 14:50) nausea Tobacco use date assessed: 10/26/23 Dental Screening Dental Screen Date: 10/26/23 HPI 6 Month Follow Up HPI Details 58-year-old obese female with hypothyroi dism hypertension coming in for follow-up. Last seen for physical exam in October having knee arthritis. Patient's mammogram is due this month Cologuard testing is up-to-date 11/10/2021. January was seen by the Orthopedics for the left knee injections [facility] Medical History Left knee pain History of torn meniscus of left knee Cervical cancer screening Colon cancer screening Cholelithiasis Obesity (BMI 30-39.9) Hypothyroid Surgical History History of laparoscopic cholecystectomy History of tubal ligation Family History Father Alzheimers disease Mother Diabetes Hypertension Maternal Grandmother Liver cancer Bipolar 1 disorder Maternal Aunt Lung cancer Maternal Uncle FH: prostate cancer Paternal Grandmother Uterine cancer Brother CVA (cerebral vascular accident) Eye cancer Myocardial infarct Son Bipolar 1 disorder Family/Other Mental health disorder Maternal Grandfather Myocardial infarct Brother Myocardial infarct Social History Housing: Apartment Alcohol intake: never Patient Tobacco Use Status: Never used Tobacco Tobacco use type: Cigarette e-Cigarette/Vaping Use: Never Used Second Hand Smoke Exposure: No service: No Current occupational status: employed 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 Barak Elise, Brandi Rich, Sameer Ceballos and colleagues, with an educational rodrick from [employer]. Physical exam (Primary Care) Vital Signs: Last Vital Signs Pulse 56 05/23/24 14:49 BP 134/82 05/23/24 14:49 Pulse Ox 99 05/23/24 14:49 Oxygen Delivery Method Room Air 05/23/24 14:49 BMI result Body Mass Index 32.2 Tobacco/Smoking Status: Tobacco use Status Tobacco use date assessed 10/26/23 05/23/24 14:50 Patient Tobacco Use Status Never used Tobacco 05/23/24 14:50 Tobacco use type Cigarette 05/23/24 14:50 e-Cigarette/Vaping Use Never Used 05/23/24 14:50 Thrive Assessment: Date of Thrive Assessment Date Thrive assessed 10/26/23 05/23/24 14:50 Const General: alert; No acute distress Eyes Conjunctivae: conjunctivae normal Resp Auscultation: clear to auscultation bilaterally Cardio Rate: regular rate Rhythm: regular rhythm GI Inspection: Yes normal to inspection Extrem General: Yes normal to inspection and No edema Coding Level of Care Code Est Pt Level 4 (90230) Diagnoses Primary osteoarthritis of left knee M17.12 Primary hypertension I10 Hypertension type: primary hypertension Obesity (BMI 30-39.9) E66.9 Acquired hypothyroidism E03.9 Hypothyroidism type: acquired Assessment & Plan Assessment & Plan (1) Primary osteoarthritis of left knee: Code(s): M17.12 - Unilateral primary osteoarthritis, left knee Category: Medical Plan: Patient has seen ortho and has had injections Euflexxa (2) Hypertension: Code(s): I10 - Essential (primary) hypertension Category: Medical Qualifiers: Hypertension type: primary hypertension Qualified Code(s): I10 - Essential (primary) hypertension Plan: Patient not on any medication continue to monitor (3) Obesity (BMI 30-39.9): Code(s): E66.9 - Obesity, unspecified Category: Medical Plan: Diet and exercise (4) Hypothyroid: Code(s): E03.9 - Hypothyroidism, unspecified Category: Medical Qualifiers: Hypothyroidism type: acquired Qualified Code(s): E03.9 - Hypothyroidism, unspecified Plan: Continue with thyroid medication Orders: Orders Thyroid Stimulating Hormone 5 Months I10 - Essential (primary) hypertension Complete Blood Count Auto Diff 5 Months I10 - Essential (primary) hypertension Comprehensive Met. Panel 5 Months I10 - Essential (primary) hypertension Lipid Panel 5 Months E78.00 - Pure hypercholesterolemia, unspecified, I10 - Essential (primary) hypertension Vitamin B12 and Folate 5 Months I10 - Essential (primary) hypertension Vitamin D 25-OH Total 5 Months I10 - Essential (primary) hypertension Free T4 (Free Thyroxine) 5 Months I10 - Essential (primary) hypertension Medications: Discontinued meloxicam Discontinued Reason: Doctor's Order 15 mg PO DAILY 14 tabs 0RF
== END 2024-05-23 16:05 | disposition home or self-care (01) ==
LOC: HO.HMCH 14:35
PROVIDERS: PCP Internal Medicine; Visit Provider Internal Medicine
DX: M17.12 Unilateral primary osteoarthritis, left knee (principal); I10 Essential (primary) hypertension; E66.9 Obesity, unspecified; Z68.32 Body mass index [BMI] 32.0-32.9, adult; E03.9 Hypothyroidism, unspecified

== ENCOUNTER → 2024-05-23 14:34 | Outpatient (BNVA) | payer OTHER, SELFPAY | PROVIDERS: PCP Internal Medicine; Visit Provider Internal Medicine | DX: M17.12 Unilateral primary osteoarthritis, left knee (principal); I10 Essential (primary) hypertension; E66.9 Obesity, unspecified; E03.9 Hypothyroidism, unspecified | CPT/HCPCS: 99212 ==

== ENCOUNTER 2024-08-27 10:22 | Outpatient (AMB) | payer OTHER, SELFPAY ==
[2024-08-27 10:41] VITALS: BMI 31.1
--- NOTE | 2024-08-27 10:41 | A.OFFVIS_ITS ---
VS Expanded 08/27/24 10:41 08/27/24 10:54 Height 5 ft 2 in 5 ft 2 in Weight 169 lb 15.622 oz 170 lb BMI 31.1 31.1 Intake Visit Reasons: Obesity/Confirmed Allergies codeine Allergy (Unknown, Verified 05/23/24 14:50) anxious/itchy oxycodone Allergy (Unknown, Verified 05/23/24 14:50) nausea Nutrition Presentation Details: Pt presents for MNT f/u for obesity Pt reports keeping physically active by walking doing chair exercises . Pt reports feeling well, no concerns expressed. Pt has questions regarding thyroid function improvements since diet modifications, noted Pt has pending labs including thyroid function and appt pending with PCP for evaluation. Pt reports doing well, feeling more energetic keeping hydrated, having water or diluted juices with water fruits: 2-3 (fruits and juice diluted with water) veg: daily 2-3 servings starches 18-22/d, reports choosing whole grain foods fish: 2 x/wk dairy: yogurt/cheese/milk/ 2-3 cups /d Reports working on including a variety of nuts and trying different foods/combinations. not taking mvi BS Monitoring Most Recent Diabetes Results: No Data to Display IUI-Maglhtg-Pp.Jeor Equation Height: 5 ft 2 in Weight: 170 lb Resting Metabolic Rate: 1313.15 Calculated Activity Level: Mild Activity Calories Needed to Maintain Weight: 1805.58 [facility] Medical History Left knee pain History of torn meniscus of left knee Cervical cancer screening Colon cancer screening Cholelithiasis Obesity (BMI 30-39.9) Hypothyroid Surgical History History of laparoscopic cholecystectomy History of tubal ligation Family History Father Alzheimers disease Mother Diabetes Hypertension Maternal Grandmother Liver cancer Bipolar 1 disorder Maternal Aunt Lung cancer Maternal Uncle FH: prostate cancer Paternal Grandmother Uterine cancer Brother CVA (cerebral vascular accident) Eye cancer Myocardial infarct Son Bipolar 1 disorder Family/Other Mental health disorder Maternal Grandfather Myocardial infarct Brother Myocardial infarct Social History Housing: Apartment Alcohol intake: never Patient Tobacco Use Status: Never used Tobacco Tobacco use type: Cigarette e-Cigarette/Vaping Use: Never Used Second Hand Smoke Exposure: No service: No Current occupational status: employed 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 Current occupational exposures/hazards: No Cognitive needs: No Hearing needs: No Vision needs: No Female Reproductive History Menstrual Age of Menarche: 15 Assessment & Plan Assessment & Plan (1) Obesity (BMI 30-39.9): Code(s): E66.9 - Obesity, unspecified Category: Medical Plan: Pt's goal wt: 160 lbs (73 kg) Wt: 83 Kg ( 10/2023 , 11/2023 , 12/2023 ), 80 (01/2024), (05/16), 77kg (09/17) Est kcal needs as per MSJ: 1600 (40% carb, 30% protein/fat) Est fluid needs as per 30 ml/d: 2300 Est prot per day as per 1 g/kg bw: 77 Recommend fiber intake : 8-10 g per day and gradually increase to 25-28 g per d ay for women and 35-38 g for men or as tolerated Recommend sodium intake per day : less than 2000 mg Educated patient on: ( R = reviewed V = verbalizes understanding N/R = needs review N/A = not applicable * Food sources of carbohydrate, adequate serving sizes and its role in various health conditions: R * Differences between complex carbohydrates a simple carbohydrates, role of fiber in diet: R , V * Lean protein sources of foods: R V * Differences between types of fats and role in diet (mono on saturated fat fatty acids, saturated fatty acids, trans fats): R , v * Food sources of sodium in salt and healthy modifications for heart health in kidney health: R * Vitamins and minerals: R * Healthy plate method concept: R * Physical activity: Benefits a precaution: R * Patient Instructions: Continue following healthy plate method as established Continue with physical activity, vary your activity (walk faster, stairs, dancing ,as examples) Do labs that are pending Coding Level of Care Code Nutr Indiv Subseq (01205) Diagnoses Obesity (BMI 30-39.9) E66.9 Time Spent (min) 30
[2024-08-27 10:54] VITALS: BMI 31.1
== END 2024-08-27 11:05 | disposition home or self-care (01) ==
PROVIDERS: PCP Internal Medicine; Visit Provider Dietitian, Registered
DX: E66.9 Obesity, unspecified (principal)

== ENCOUNTER → 2024-08-27 10:22 | Outpatient (BNVA) | payer OTHER, SELFPAY | PROVIDERS: PCP Internal Medicine; Visit Provider Dietitian, Registered | DX: E66.9 Obesity, unspecified (principal); Z71.3 Dietary counseling and surveillance; Z68.31 Body mass index [BMI] 31.0-31.9, adult | CPT/HCPCS: 97803 ==

== ENCOUNTER 2024-10-26 06:54 | Outpatient (REF) | payer OTHER, SELFPAY ==
[2024-10-26 07:17] LABS: MANUAL DIFF FLAG NO
[2024-10-26 07:31] LABS: Basophils Absolute Auto 0.1 X10*3/uL (0.0-0.2); Basophils Percent Auto 1.8 % (0-2); Eosinophils Absolute Auto 0.2 X10*3/uL (0.0-0.4); Eosinophils Percent Auto 2.6 % (0-4); Hematocrit 41.9 % (37.0-47.0); Hemoglobin 13.8 g/dl (12.0-16.0); Imm Gran Abs Auto 0.03 X10*3/uL (0.00-0.03); Imm Gran Pct Auto 0.5 % (0.0-0.4); Lymphocytes Absolute Auto 1.9 X10*3/uL (1.2-4.9); Lymphocytes Percent Auto 28.7 % (20-40); Mean Corpuscular HGB Conc 32.9 g/dl (31.0-35.0); Mean Corpuscular Hemoglobin 30.8 pg (27.0-33.0); Mean Corpuscular Volume 93.5 fL (80.0-98.0); Mean Platelet Volume 11.7 fL (9.4-12.3); Monocytes Absolute Auto 0.4 X10*3/uL (0.1-1.2); Monocytes Percent Auto 6.3 % (2-11); Neutrophils Percent Auto 60.1 % (45-73); Platelet Count 230 X10*3/uL (160-400); Red Blood Count 4.48 X10*6/uL (4.20-5.50); White Blood Count 6.6 X10*3/uL (4.8-10.8)
[2024-10-26 07:46] LABS: Alanine Aminotransferase 11 U/L (0-31); Albumin Level 4.1 g/dL (3.5-5.0); Alkaline Phosphatase 85 U/L (39-117); Anion Gap 11 (12-20); Aspartate Amino Transferase 19 U/L (5-31); Bilirubin Total 1.1 mg/dL (0.0-1.0); Blood Urea Nitrogen 16 mg/dL (9-16); Calcium 9.4 mg/dL (8.4-10.2); Carbon Dioxide 28 mmol/L (22-29); Chloride 107 mmol/L (96-108); Cholesterol 147 mg/dL (<200); Estimated Glomerular Filt Rate > 60; Glucose Random 95 mg/dL (60-115); HDL Cholesterol 55 mg/dL (>40); LDL Cholesterol Calculated 76 mg/dL (<100); Sodium 142 mmol/L (135-145); Total Protein 6.9 g/dL (6.5-8.0); Triglycerides 80 mg/dL (<150)
[2024-10-26 08:01] LABS: Free T4 (Free Thyroxine) 0.93 ng/dL (0.71-1.85); Thyroid Stimulating Hormone 9.25 uIU/mL (0.32-4.0)
[2024-10-26 08:16] LABS: Vitamin B12 650 pg/mL (200-900)
== END 2024-10-26 06:55 | disposition home or self-care (01) ==
LOC: HO.LAB 06:54
PROVIDERS: PCP Internal Medicine; Visit Provider Internal Medicine
DX: I10 Essential (primary) hypertension (principal); E78.00 Pure hypercholesterolemia, unspecified
CPT/HCPCS: 36415; 80053; 80061; 82306; 82607; 82746; 84439; 84443; 85025

== ENCOUNTER 2024-10-31 16:07 | Outpatient (AMB) | payer OTHER, SELFPAY ==
[2024-10-31 16:18] VITALS: BP 154/84; PULSE 67; TEMP 36.2; O2SAT 95; BMI 31.2
--- NOTE | 2024-10-31 16:18 | A.OFFPC_ITS ---
Vital Signs 10/31/24 16:18 Height 5 ft 2 in Weight 170 lb 6 oz BMI 31.2 BP 154/84 H Blood Pressure Location Lt brachial Position Sitting Pulse 67 Pulse Source Pulse Oximeter Temp 97.1 F Temp Source Temporal Artery Scan Pulse Oximetry (%) 95 Oxygen Delivery Method Room Air Intake Visit Reasons: physical Director Of Curriculum And Instruction Required: No Accompanied by: Self / Same As Patient Allergies codeine Allergy (Unknown, Verified 10/31/24 16:47) anxious/itchy oxycodone Allergy (Unknown, Verified 10/31/24 16:47) nausea Medication List - Last Reconciled 10/31/24 by Lindsey Carter MD ascorbate calcium (vitamin C) 500 mg PO DAILY cholecalciferol (vitamin D3) 25 mcg PO DAILY Synthroid (levothyroxine) 150 mcg PO DAILY 90 days NS Tobacco use date assessed: 10/31/24 Dental Screening Dental Screen Date: 10/31/24 Did you have a dental visit in the last 12 months?: Yes Did you have a dental problem in the last 6 months where you did not have access to dental care?: No Was dental information given to patient?: Patient has dentist HPI physical HPI Details BP is good at home- [facility] Medical History (Updated 10/31/24 @ 19:00 by Lindsey Carter MD) Cholelithiasis Colon cancer screening Left knee pain History of torn meniscus of left knee Cervical cancer screening Obesity (BMI 30-39.9) Hypothyroid Surgical History History of laparoscopic cholecystectomy History of tubal ligation Family History (Updated 10/31/24 @ 17:26 by Lindsey Carter MD) Father Alzheimers disease Myocardial infarct Mother Diabetes Hypertension Maternal Grandmother Liver cancer Bipolar 1 disorder Maternal Aunt Lung cancer Maternal Uncle FH: prostate cancer Paternal Grandmother Uterine cancer Brother CVA (cerebral vascular accident) Eye cancer Myocardial infarct Son Bipolar 1 disorder Family/Other Mental health disorder Maternal Grandfather Myocardial infarct Brother Myocardial infarct Social History Housing: Apartment Alcohol intake: never Patient Tobacco Use Status: Never used Tobacco Tobacco use type: Cigarette e-Cigarette/Vaping Use: Never Used Second Hand Smoke Exposure: No service: No Current occupational status: employed 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 1. Little interest or pleasure in doing things: not at all 2. Feeling down, depressed, or hopeless: not at all 3. Trouble falling or staying asleep, or sleeping too much: not at all 4. Feeling tired or having little energy: not at all 5. Poor appetite or overeating: not at all 6. Feeling bad about yourself - or that you are a failure or have let yourself or your family down: not at all 7. Trouble concentrating on things, such as reading the newspaper or watching television: not at all 8. Moving or speaking so slowly that other people could have noticed. Or the opposite - being so fidgety or restless that you have been moving around a lot more than usual: not at all 9. Thoughts that you would be better off or of hurting yourself in some way: not at all Total score: 0 Source: Developed by Drs. Barak Elise, Brandi Rich, Sameer Ceballos and colleagues, with an educational rodrick from [employer]. Thrive Questionnaire Date Thrive assessed: 10/26/23 I am a: Patient What is your living situation today?: I have a steady place to live Within the past 12 months, did the food you bought not last and you didn't have the money to get more?: Never true Within the past 12 months, did you worry whether your food would run out before you got money to buy more?: Never true Do you have trouble paying for medicines?: No Do you have trouble getting transportation to medical appointments?: No Do you have trouble paying your heating and electricity bill?: No Do you have trouble taking care of your child, family member or friend?: No Do you have trouble with day-to-day activities such as bathing, preparing meals, shopping, managing finances, etc.?: No Are you currently unemployed and looking for a job?: Yes Are you interested in more education?: No Please select the resources that you would like help with: None Currently or been in a relationship where the following occur: No concerns reported THRIVE Score: 0 AUDIT C Alcohol Use Questionnaire (AUDIT-C) 1. How often do you have a drink containing alcohol?: Never 3. How often do you have six or more drinks on one occasion?: Never Total Score: 0 KATERYNA-7 AMB Questionnaire KATERYNA-7 Date KATERYNA - 7 assessed: 10/26/23 Feeling nervous, anxious, or on edge: 0 = Not at all Not being able to stop or control worryin = Not at all Worrying too much about different things: 0 = Not at all Trouble relaxin = Not at all Being so restless that it is hard to sit still: 0 = Not at all Becoming easily annoyed or irritable: 0 = Not at all Feeling afraid as if something awful might happen: 0 = Not at all Total KATERYNA-7 score (0-4 normal; 5-9 mild; 10-14 moderate; 15-21 severe): 0 Source: Developed by Drs. Barak Elise, Brandi Rich, Sameer Ceballos and colleagues, with an educational rodrick from [employer]. Review of Systems Const Denies poor appetite and Denies weakness Eyes Denies no additional complaints ENT Reports Normal hearing present, Denies dizziness, Denies nasal congestion, Denies tinnitus and Denies sore throat Card Denies chest pain, Denies syncope, Denies rapid heart rate and Denies dyspnea Resp Denies cough and Denies dyspnea GI Denies change in stool character, Reports constipation, Denies diarrhea, Denies nausea and Denies vomiting Denies urinary frequency, Denies difficulty voiding and Denies dysuria Neuro Reports Normal hearing present, Denies confusion, Denies dizziness, Denies syncope and Denies weakness Psych Denies confusion Physical exam (Primary Care) Vital Signs: Last Vital Signs Temp 97.1 F 10/31/24 16:18 Pulse 67 10/31/24 16:18 BP 154/84 H 10/31/24 16:18 Pulse Ox 95 10/31/24 16:18 Oxygen Delivery Method Room Air 10/31/24 16:18 BMI result Body Mass Index 31.2 Tobacco/Smoking Status: Tobacco use Status Tobacco use date assessed 10/31/24 10/31/24 16:48 Patient Tobacco Use Status Never used Tobacco 10/31/24 16:19 Tobacco use type Cigarette 10/31/24 16:19 e-Cigarette/Vaping Use Never Used 10/31/24 16:19 PHQ-9: PHQ-9 Score PHQ-9: Total score 0 10/31/24 17:22 Thrive Assessment: Date of Thrive Assessment Date Thrive assessed 10/26/23 10/31/24 16:19 Currently or been in a relationship where the following occur: No concerns reported Const General: No confusion Orientation/consciousness: No confusion HENMT Head: Yes normocephalic Ears: external ears normal and TM's normal bilaterally Face and sinus: Yes normal facial exam Mouth: moist mucous membranes Throat: Yes tonsils normal Eyes Conjunctivae: conjunctivae normal Pupils: Equal, round and reactive pupils present and Pupil accommodation reflex normal Direct Ophthalmoscopy: normal light reflex Neck Neck: No lymphadenopathy Thyroid: Thyroid normal Chest Chest palpation & inspection: normal inspection of the chest Resp Effort & Inspection: normal respiratory effort and no audible wheezes Auscultation: clear to auscultation bilaterally, no crackles, no wheezes and lung sounds not diminished Cardio Rate: regular rate Rhythm: regular rhythm Peripheral pulses: radial pulses present and dorsalis pedis present GI Palpation (GI): no masses Auscultation: normal bowel sounds and normoactive bowel sounds Rectal Exam - Female: deferred Skin General skin exam: no rashes or lesions noted Rashes: no rashes Neuro General: No confusion Cranial nerves: Yes Equal, round and reactive pupils present and Yes Normal hearing present Cognition (Neuro): normal cognition Gait exam (Neuro): Normal gait present Motor exam (neuro): 5/5 motor strength present throughout Deep tendon reflexes (DTR's): Right brachioradialis reflex intensity grade: 2+, Left brachioradialis reflex intensity grade: 2+, Right patellar reflex intensity grade: 2+ and Left patellar reflex intensity grade: 2+ Extrem General: No edema Coding Level of Care Code Est Pt Prev Care 40-64y(39682) Diagnoses Annual physical exam Z00.00 Obesity (BMI 30-39.9) E66.9 Acquired hypothyroidism E03.9 Hypothyroidism type: acquired Colon cancer screening Z12.11 Assessment & Plan Assessment & Plan (1) Annual physical exam: Code(s): Z00.00 - Encounter for general adult medical examination without abnormal findings Category: Medical Plan: Patient is advised to eat healthy, keep well hydrated, keep active and have adequate sleep. (2) Obesity (BMI 30-39.9): Code(s): E66.9 - Obesity, unspecified Category: Medical Plan: Diet and exercise (3) Hypothyroid: Code(s): E03.9 - Hypothyroidism, unspecified Category: Medical Qualifiers: Hypothyroidism type: acquired Qualified Code(s): E03.9 - Hypothyroidism, unspecified Plan: Discussed about changing the thyroid medication dose. Kira has a high tsh . states has been self changing to take synthroid 4 days a week only hence the TSH higher and patient opted to stay that way- wants to be referred to ENDO (4) Colon cancer screening: Code(s): Z12.11 - Encounter for screening for malignant neoplasm of colon Category: Medical Plan: cologuard is at home Plan History of Present Illness The patient is a 59-year-old female presenting for a physical examination and thyroid management follow-up. She has well-documented diagnoses of essential hypertension, hypothyroidism, and osteoarthritis of the left knee. Status post cholecystectomy in 2019 for cholelithiasis is noted. The focus of today's visit centered around her thyroid management, particularly the recent TSH level elevation to 9.25 from October 2024 laboratory tests. Suboptimal medication adherence was reported, as the patient adjusted her Synthroid intake, currently taking it five days a week instead of daily as prescribed. Evaluation of her overall metabolic health shows excellent lipid management, supported by laboratory findings reflecting low LDL levels and within-range triglycerides and HDL cholesterol. General health parameters such as blood count, renal and liver function, and thompson vitamin levels remain stable, contributing positively to her management. The patient remains asymptomatic without new significant complaints, denying dizziness, nausea, or cardiorespiratory difficulties. Health Maintenance - Mammogram: Up to date as of April 2024. - Cologuard test: Due, home testing kit available. - Blood work from October 2024: - Normal blood count, electrolytes, renal, liver functions. - LDL: 76, triglycerides: 80, HDL: 55. - Vitamin B12, Vitamin D, folic acid levels within normal limits. - Lifestyle counseling on TSH management with diet and exercise. - Family history disclosed includes liver, lung, diaphragm, and prostate cancers; emphasis on regular monitoring due to family history. - Blood pressure monitoring and healthy lifestyle encouraged. Social History - Exercise: Engages in walking; unable to partake in more strenuous activities due to knee osteoarthritis. - Diet: Currently maintaining a low-fat diet due to past gallbladder issues. - Smoking, alcohol, drug use: Denies. - Family: History of cardiovascular disease; brother and father with heart attacks. Review of Systems - General: Denies fever, dizziness, passing out. - Cardiovascular: Denies chest pain, dyspnea, recent orthopnea. - Gastrointestinal: Reports regular bowel movements, denies nausea, vomiting, or dysphagia. - Genitourinary: Nocturia once per night. - Musculoskeletal: Unable to exercise extensively due to knee osteoarthritis. - Endocrine: Reports decreased thyroid medication intake. Physical Exam General: Cooperative, healthy appearing, comfortable, no acute distress and well developed Orientation: Patient oriented x3 Limitations: No limitations Head: Normal to inspection Ears: Hearing grossly normal bilaterally Nose: Normal external nose present Face and sinus: Normal facial exam Eyes: Appearance normal, both eyes and all related structures Neck: Normal visual inspection and Yes full ROM Respiratory: Normal respiratory effort and able to speak in complete sentences. Clear to auscultation bilaterally Cardiovascular: Regular rate and rhythm. Normal S1 and S2 GI: Normal to inspection. Soft to palpation and nontender Skin: No rashes or lesions noted Neuro: Patient oriented x3 Extremities: Normal to inspection Results - Labs: October 2024 results show normal ranges for blood count, electrolytes, renal, and liver functions. TSH elevated at 9.25. - Tests: LDL 76 mg/dL, HDL 55 mg/dL, Triglycerides 80 mg/dL. Vitamin B12, Vitamin D, folic acid within normal limits. - Previous imaging: Mammogram up to date as of April 2024. Plan The primary concern of elevated TSH is planned to be addressed through a more consistent Synthroid intake according to prescribed guidelines. I recommended endocrinology consultation for further evaluation regarding her thyroid medication dosing. She is advised to maintain her current low-fat diet following cholecystectomy. We will continue to monitor blood pressure and encourage regular physical activity within her physical constraints due to osteoarthritis. Preventive health measures include regular mammograms and Cologuard testing completion. Continued adherence to scheduled screenings and consultations is essential due to her significant family history of cancer and heart disease. Patient was informed and verbally consented to the use of an ambient scribe for clinic note documentation during this visit. Discussion Notes We reviewed the patient's current health issues, particularly thyroid management and the importance of consistent medication adherence to control elevated TSH levels. An coverstitch machine operator consultation was advised for a potential dose reevaluation. The benefits of her current low-fat diet post-cholecystectomy were reinforced to prevent complications. Given her family history of cardiovascular disease and various cancers, preventive health strategies, including mammogram and colon cancer screenings, were emphasized. We discussed a follow-up plan for preventive health maintenance with regular check-ups as part of her long-term care strategy. Ensured patient understanding and agreement with the management strategies, including any necessary referrals made. Patient Instructions - Adhere to Synthroid medication as prescribed without missing doses. - Maintain a low-fat diet to prevent post-cholecystectomy complications. - Complete the Cologuard test as soon as possible. - Monitor blood pressure regularly and report any significant elevations. - Increase physical activity within knee tolerance levels to keep fit. - Schedule follow-up with an coverstitch machine operator for medication review. - Ensure timely mammogram screenings and other preventive health checks. - Report any new symptoms or if conditions worsen promptly. Orders: Referrals Endocrinology Referral E03.9 - Hypothyroidism, unspecified Medications: Refilled Synthroid (levothyroxine) 150 mcg PO DAILY 90 tabs 3RF 90 days NS E03.9 - Hypothyroidism, unspecified
== END 2024-10-31 17:42 | disposition home or self-care (01) ==
LOC: HO.HMCH 16:08
PROVIDERS: PCP Internal Medicine; Visit Provider Internal Medicine
DX: Z00.00 Encounter for general adult medical examination without abnormal findings (principal); E66.9 Obesity, unspecified; Z68.31 Body mass index [BMI] 31.0-31.9, adult; E03.9 Hypothyroidism, unspecified; Z12.11 Encounter for screening for malignant neoplasm of colon

== ENCOUNTER → 2024-10-31 16:07 | Outpatient (BNVA) | payer OTHER, SELFPAY | PROVIDERS: PCP Internal Medicine; Visit Provider Internal Medicine | DX: Z00.00 Encounter for general adult medical examination without abnormal findings (principal); E66.9 Obesity, unspecified; E03.9 Hypothyroidism, unspecified; Z68.31 Body mass index [BMI] 31.0-31.9, adult | CPT/HCPCS: 99396 ==

== ENCOUNTER 2024-11-25 13:07 | Outpatient (AMB) | payer OTHER, SELFPAY ==
[2024-11-25 13:43] VITALS: BMI 31.6
--- NOTE | 2024-11-25 13:43 | A.OFFVIS_ITS ---
VS Expanded 11/25/24 13:43 Height 5 ft 2 in Weight 172 lb 13.478 oz BMI 31.6 Intake Visit Reasons: Obesity Allergies codeine Allergy (Unknown, Verified 10/31/24 16:47) anxious/itchy oxycodone Allergy (Unknown, Verified 10/31/24 16:47) nausea Nutrition Presentation Details: Pt presents for MNT f/u for obesity Pt reports walking daily 1 hr Working on low fat and low sodium food fruits: 3/d Ve-2/d dairy : 2-3 day, alternating between low sodium/low fat starches: aiming to choosing whole grain starches fish : 1-2x/wk choosing baked vs fried beverages: water, water with lemon, tea, coffee 1x/d, diluting juices with water BS Monitoring Most Recent Diabetes Results: Cholesterol 147 mg/dL (<200) 10/26/24 HDL Cholesterol 55 mg/dL (>40) 10/26/24 Triglycerides 80 mg/dL (<150) 10/26/24 Creatinine 0.94 mg/dL (0.5-1.4) 10/26/24 Blood Urea Nitrogen 16 mg/dL (9-16) 10/26/24 Sodium 142 mmol/L (135-145) 10/26/24 Potassium 4.0 mmol/L (3.3-5.1) 10/26/24 Chloride 107 mmol/L (96-108) 10/26/24 Carbon Dioxide 28 mmol/L (22-29) 10/26/24 Calcium 9.4 mg/dL (8.4-10.2) 10/26/24 AST 19 U/L (5-31) 10/26/24 ALT 11 U/L (0-31) 10/26/24 Total Protein 6.9 g/dL (6.5-8.0) 10/26/24 Albumin 4.1 g/dL (3.5-5.0) 10/26/24 [facility] Medical History (Updated 10/31/24 @ 19:00 by Lindsey Carter MD) Cholelithiasis Colon cancer screening Left knee pain History of torn meniscus of left knee Cervical cancer screening Obesity (BMI 30-39.9) Hypothyroid Surgical History History of laparoscopic cholecystectomy History of tubal ligation Family History (Updated 10/31/24 @ 17:26 by Lindsey Carter MD) Father Alzheimers disease Myocardial infarct Mother Diabetes Hypertension Maternal Grandmother Liver cancer Bipolar 1 disorder Maternal Aunt Lung cancer Maternal Uncle FH: prostate cancer Paternal Grandmother Uterine cancer Brother CVA (cerebral vascular accident) Eye cancer Myocardial infarct Son Bipolar 1 disorder Family/Other Mental health disorder Maternal Grandfather Myocardial infarct Brother Myocardial infarct Social History Housing: Apartment Alcohol intake: never Patient Tobacco Use Status: Never used Tobacco Tobacco use type: Cigarette e-Cigarette/Vaping Use: Never Used Second Hand Smoke Exposure: No service: No Current occupational status: employed 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 Current occupational exposures/hazards: No Cognitive needs: No Hearing needs: No Vision needs: No Female Reproductive History Menstrual Age of Menarche: 15 Assessment & Plan Assessment & Plan (1) Obesity (BMI 30-39.9): Code(s): E66.9 - Obesity, unspecified Category: Medical Plan: Pt's goal wt: 160 lbs (73 kg) Wt: 83 Kg ( 10/2023 , 11/2023 , 12/2023 ), 80 (01/2024), (05/16), 77kg (09/17), 78 kg (12/15) Est kcal needs as per MSJ: 1600 (40% carb, 30% protein/fat) Est fluid needs as per 30 ml/d: 2300 Est prot per day as per 1 g/kg bw: 77 Recommend fiber intake : 8-10 g per day and gradually increase to 25-28 g per day for women and 35-38 g for men or as tolerated Recommend sodium intake per day : less than 2000 mg Educated patient on: ( R = reviewed V = verbalizes understanding N/R = needs review N/A = not applicable * Food sources of carbohydrate, adequate serving sizes and its role in various health conditions: R * Differences between complex carbohydrates a simple carbohydrates, role of fiber in diet: R , V * Lean protein sources of foods: R V * Differences between types of fats and role in diet (mono on saturated fat fatty acids, saturated fatty acids, trans fats): R , v * Food sources of sodium in salt and healthy modifications for heart health in kidney health: R, V * Vitamins and minerals: R,V * Healthy plate method concept: R, V * Physical activity: Benefits a precaution: R ,V * Patient Instructions: Continue working on choosing low fat foods, particularly saturated fats - see list of saturated fats vs unsaturated fats Coding Level of Care Code Nutr Indiv Subseq ([id number]) Diagnoses Obesity (BMI 30-39.9) E66.9 Time Spent (min) 30
== END 2024-11-25 14:13 | disposition home or self-care (01) ==
LOC: HO.ENCR 13:07
PROVIDERS: PCP Internal Medicine; Visit Provider Dietitian, Registered
DX: E66.9 Obesity, unspecified (principal)

== ENCOUNTER → 2024-11-25 13:07 | Outpatient (BNVA) | payer OTHER, SELFPAY | PROVIDERS: PCP Internal Medicine; Visit Provider Dietitian, Registered | DX: E66.9 Obesity, unspecified (principal); Z68.31 Body mass index [BMI] 31.0-31.9, adult | CPT/HCPCS: 97803 ==

== ENCOUNTER 2024-11-28 07:44 | Outpatient (AMB) | payer OTHER, SELFPAY ==
--- NOTE | 2024-11-28 07:47 | MHC.OFFVIS ---
Vital Signs 11/28/24 07:52 Height 5 ft 2 in Weight 174 lb 13.225 oz BMI 32.0 BP 142/76 H Blood Pressure Location Lt brachial Position Sitting Pulse 52 Pulse Source Pulse Oximeter Pulse Oximetry (%) 97 Oxygen Delivery Method Room Air Intake Visit Reasons: Hypothyroidism Intake Note: Patient present today for Hypothyroidism office visit. 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 Diagnosed at age 30 years, started levothyroxine at age 40. Per patient on the generic she continued to have symptoms with excessive fatigue, so was ineffective. Synthroid works well for her Synthroid 150 mcg daily , takes it in the morning. missing a lot of doses recently. Blood work from 10/26/2024 showed TSH was high at 9.25, free T4 was normal at 0.93. Patient endorse that she had not been taking her medication regularly. Has been taking it regularly for the past 3 weeks. Patient currently denies heat or cold intolerance, diarrhea or constipation, hair loss, palpitation, anxiety, mood changes, low energy, changes in appearance of eyes or vision changes, tremors, increased diaphoresis or dry skin. Thinks she has lost 20 lbs in 1 years with diet changes. ? Patient denies any difficulty swallowing, pain on swallowing or voice changes or difficulty breathing. Patient denies any history of childhood neck radiation. Denies having ever used lithium, amiodarone or biotin supplements. Patient denies any family history of thyroid cancer. Mother has thyroid nodules. Paternal side multiple family members have thyroid disease. Physical exam General: sitting comfortably in no acute distress HEENT: normocephalic/atraumatic, moist oral mucosa Neck: supple, Cardiac: normal heart sounds Pulm: normal breath sounds B/L, no added breath sounds Abd: not distended, no tenderness Extremities: no edema, no signs of myxedema Laboratory Tests 10/21/23 10/26/24 08:38 06:51 TSH 0.53 9.25 H Free T4 1.27 0.93 PFS Medical History (Updated 10/31/24 @ 19:00 by Lindsey Carter MD) Cholelithiasis Colon cancer screening Left knee pain History of torn meniscus of left knee Cervical cancer screening Obesity (BMI 30-39.9) Hypothyroid Surgical History History of laparoscopic cholecystectomy History of tubal ligation Family History Father Alzheimers disease Myocardial infarct Mother Diabetes Hypertension Maternal Grandmother Liver cancer Bipolar 1 disorder Maternal Aunt Lung cancer Maternal Uncle FH: prostate cancer Paternal Grandmother Uterine cancer Brother CVA (cerebral vascular accident) Eye cancer Myocardial infarct Son Bipolar 1 disorder Family/Other Mental health disorder Maternal Grandfather Myocardial infarct Brother Myocardial infarct Social History Housing: Apartment Alcohol intake: never Patient Tobacco Use Status: Never used Tobacco Tobacco use type: Cigarette e-Cigarette/Vaping Use: Never Used Second Hand Smoke Exposure: No service: No Current occupational status: employed 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 Current occupational exposures/hazards: No Cognitive needs: No Hearing needs: No Vision needs: No Female Reproductive History Menstrual Age of Menarche: 15 Physical Exam Vital Signs: Last Vital Signs Pulse 52 11/28/24 07:52 BP 142/76 H 11/28/24 07:52 Pulse Ox 97 11/28/24 07:52 Oxygen Delivery Method Room Air 11/28/24 07:52 BMI result Body Mass Index 32.0 Assessment & Plan Assessment & Plan (1) Hypothyroid: Code(s): E03.9 - Hypothyroidism, unspecified Category: Medical Qualifiers: Hypothyroidism type: acquired Qualified Code(s): E03.9 - Hypothyroidism, unspecified Plan: 59-year-old female coming in today for initial evaluation of hypothyroidism. Previously was being managed by PCP. She has been on medication for hypothyroidism since age 40. She could not tolerate generic levothyroxine, and it was ineffective per patient with persistent symptoms of fatigue. Since she has been on the Synthroid she has had good effect. Most recent blood work done 10/26/2024 showed TSH was high at 9.25, free T4 was normal at 0.93. Patient endorse that she had not been taking her medication regularly. Has been taking it regularly for the past 3 weeks. At this point I have asked her to continue the same dose and repeat blood work in 3 weeks. Plan: -ordered TSH, free T4 to be done in 3 weeks -continue Synthroid 150 mcg daily -follow up in 9 weeks Plan See above Orders: Orders Thyroid Stimulating Hormone 3 Weeks E03.9 - Hypothyroidism, unspecified Free T4 (Free Thyroxine) 3 Weeks E03.9 - Hypothyroidism, unspecified Medications: Changed From Synthroid (levothyroxine) 150 mcg PO DAILY 90 days 90 tabs 3RF NS E03.9 - Hypothyroidism, unspecified To Synthroid (levothyroxine) Brand name only, no substitution allowed TAHMINA 0 150 mcg PO DAILY 90 days 90 tabs 3RF NS E03.9 - Hypothyroidism, unspecified Patient Instructions: do blood work in 3 weeks We will reach out with results Continue Synthroid 150 mcg daily Follow up in 9 weeks Coding Level of Care Code New Pt Level 4 (17881) Diagnoses Acquired hypothyroidism E03.9 Hypothyroidism type: acquired
[2024-11-28 07:52] VITALS: BP 142/76; PULSE 52; O2SAT 97; BMI 32.0
== END 2024-11-28 08:52 | disposition home or self-care (01) ==
LOC: HO.ENCR 07:45
PROVIDERS: PCP Internal Medicine; Visit Provider Student in an Organized Health Care Education/Training Program
DX: E03.9 Hypothyroidism, unspecified (principal)
CPT/HCPCS: 99204

== ENCOUNTER → 2024-11-28 07:44 | Outpatient (BNVA) | payer OTHER, SELFPAY | PROVIDERS: PCP Internal Medicine; Visit Provider Student in an Organized Health Care Education/Training Program | DX: E03.9 Hypothyroidism, unspecified (principal) | CPT/HCPCS: 99202 ==

== ENCOUNTER 2024-12-30 07:36 | Outpatient (REF) | payer OTHER, SELFPAY ==
[2024-12-30 08:53] LABS: Free T4 (Free Thyroxine) 1.12 ng/dL (0.71-1.85); Thyroid Stimulating Hormone 0.66 uIU/mL (0.32-4.0)
== END 2024-12-30 07:37 | disposition home or self-care (01) ==
LOC: HO.LAB 07:36
PROVIDERS: PCP Internal Medicine; Visit Provider Student in an Organized Health Care Education/Training Program
DX: E03.9 Hypothyroidism, unspecified (principal)
CPT/HCPCS: 36415; 84439; 84443

== ENCOUNTER 2025-01-30 08:44 | Outpatient (AMB) | payer OTHER, SELFPAY ==
[2025-01-30 08:55] VITALS: BP 140/78; PULSE 61; O2SAT 100; BMI 31.5
--- NOTE | 2025-01-30 08:55 | A.OFFVIS_ITS ---
Vital Signs 01/30/25 08:55 Height 5 ft 2 in Weight 172 lb 6.424 oz BMI 31.5 BP 140/78 H Blood Pressure Location Lt brachial Position Sitting Pulse 61 Pulse Source Pulse Oximeter Pulse Oximetry (%) 100 Oxygen Delivery Method Room Air Intake Visit Reasons: Hypothyroid Intake Note: Patient present today for Hypothyroid. Threat Monitoring Analyst Required: No Accompanied by: Self / Same As Patient Allergies codeine Allergy (Unknown, Verified 01/30/25 08:58) anxious/itchy oxycodone Allergy (Unknown, Verified 01/30/25 08:58) nausea Medication List - Last Reconciled 01/30/25 by Allison Jay MD ascorbate calcium (vitamin C) 500 mg PO DAILY cholecalciferol (vitamin D3) 25 mcg PO DAILY Synthroid (levothyroxine) 150 mcg PO DAILY 90 days NS HPI Comments Details: 59 F here today for hypothyroidism, follow up visit. HPI Diagnosed at age 30 years, started levothyroxine at age 40. Per patient on the generic she continued to have symptoms with excessive fatigue, so was ineffective. Synthroid works well for her Synthroid 150 mcg daily , takes it in the morning. missing a lot of doses recently. Blood work from 10/26/2024 showed TSH was high at 9.25, free T4 was normal at 0.93. Patient endorse that she had not been taking her medication regularly. Has been taking it regularly for the past 3 weeks. Patient currently denies heat or cold intolerance, diarrhea or constipation, hair loss, palpitation, anxiety, mood changes, low energy, changes in appearance of eyes or vision changes, tremors, increased diaphoresis or dry skin. Thinks she has lost 20 lbs in 1 years with diet changes. ? Patient denies any difficulty swallowing, pain on swallowing or voice changes or difficulty breathing. Patient denies any history of childhood neck radiation. Denies having ever used lithium, amiodarone or biotin supplements. Patient denies any family history of thyroid cancer. Mother has thyroid nodules. Paternal side multiple family members have thyroid disease. Interval history Currently on Synthroid 150 mg taking it 5 days a week tho , taking it regularly Overall feeling good. Previously when she was taking 150 mcg daily she said she started feeling very hyper. Weight has now been stable. Blood work from December 2024 shows normal thyroid function. Physical exam General: sitting comfortably in no acute distress HEENT: normocephalic/atraumatic, moist oral mucosa Neck: supple, Cardiac: normal heart sounds Pulm: normal breath sounds B/L, no added breath sounds Abd: not distended, no tenderness Extremities: no edema, no signs of myxedema Laboratory Tests 10/21/23 10/26/24 08:38 06:51 TSH 0.53 9.25 H Free T4 1.27 0.93 Laboratory Tests 12/30/24 07:51 TSH 0.66 Free T4 1.12 [facility] Medical History (Updated 01/30/25 @ 09:16 by Allison Jay MD) Cholelithiasis Colon cancer screening Left knee pain History of torn meniscus of left knee Cervical cancer screening Obesity (BMI 30-39.9) Hypothyroid Surgical History History of laparoscopic cholecystectomy History of tubal ligation Family History Father Alzheimers disease Myocardial infarct Mother Diabetes Hypertension Maternal Grandmother Liver cancer Bipolar 1 disorder Maternal Aunt Lung cancer Maternal Uncle FH: prostate cancer Paternal Grandmother Uterine cancer Brother CVA (cerebral vascular accident) Eye cancer Myocardial infarct Son Bipolar 1 disorder Family/Other Mental health disorder Maternal Grandfather Myocardial infarct Brother Myocardial infarct Social History Housing: Apartment Alcohol intake: never Patient Tobacco Use Status: Never used Tobacco Tobacco use type: Cigarette e-Cigarette/Vaping Use: Never Used Second Hand Smoke Exposure: No service: No Current occupational status: employed 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 Current occupational exposures/hazards: No Cognitive needs: No Hearing needs: No Vision needs: No Female Reproductive History Menstrual Age of Menarche: 15 Physical Exam Vital Signs: Last Vital Signs Pulse 61 01/30/25 08:55 BP 140/78 H 01/30/25 08:55 Pulse Ox 100 01/30/25 08:55 Oxygen Delivery Method Room Air 01/30/25 08:55 BMI result Body Mass Index 31.5 Assessment & Plan Assessment & Plan (1) Hypothyroid: Code(s): E03.9 - Hypothyroidism, unspecified Category: Medical Qualifiers: 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 Previously was being managed by PCP. She has been on medication for hypothyroidism since age 40. She could not tolerate generic levothyroxine, and it was ineffective per patient with persistent symptoms of fatigue. Since she has been on the Synthroid she has had good effect. blood work done 10/26/2024 showed TSH was high at 9.25, free T4 was normal at 0.93. She has been taking Synthroid 150 mcg, however I had told her to take it daily but she says she has only been taking 5 days a week because she felt very hyper on taking it daily. Lab work repeated December 2024 showed normal TSH and free T4. At this time her weekly doses coming out to be 750 mcg daily. To make it easier to remember I am going to reduce Synthroid to 112 mcg daily which is coming out to be 784 mcg weekly dose. This is close to what she is taking. This way she will remember to take it daily. Plan: -decrease Synthroid to 112 mcg daily -ordered TSH, free T4 to be done in 6 weeks, we will reach out with the results -follow up in 3 months Plan I spent 30 minutes in reviewing the record, seeing the patient and documenting in the medical record. Orders: Orders Thyroid Stimulating Hormone 6 Weeks E06.3 - Autoimmune thyroiditis Free T4 (Free Thyroxine) 6 Weeks E06.3 - Autoimmune thyroiditis Medications: New Synthroid (levothyroxine) BRAND NAME ONLY TAHMINA 0 No substitution allowed 112 mcg PO DAILY 90 tabs 3RF NS Discontinued Synthroid (levothyroxine) Brand name only, no substitution allowed TAHMINA 0 Discontinued Reason: Doctor's Order 150 mcg PO DAILY 90 days 90 tabs 3RF NS E03.9 - Hypothyroidism, unspecified Patient Instructions: Decrease Synthroid to 112 mcg daily Do blood work in 6 weeks Coding Level of Care Code Est Pt Level 4 (23163) Diagnoses 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
== END 2025-01-30 09:28 | disposition home or self-care (01) ==
LOC: HO.ENCR 08:45
PROVIDERS: PCP Internal Medicine; Visit Provider Student in an Organized Health Care Education/Training Program
DX: E06.3 Autoimmune thyroiditis (principal)
CPT/HCPCS: 99214

== ENCOUNTER → 2025-01-30 08:44 | Outpatient (BNVA) | payer OTHER, SELFPAY | PROVIDERS: PCP Internal Medicine; Visit Provider Student in an Organized Health Care Education/Training Program | DX: E06.3 Autoimmune thyroiditis (principal); Z79.890 Hormone replacement therapy | CPT/HCPCS: 99212 ==

== ENCOUNTER 2025-04-05 07:02 | Outpatient (REF) | payer OTHER, SELFPAY ==
[2025-04-05 08:54] LABS: Free T4 (Free Thyroxine) 1.06 ng/dL (0.71-1.85); Thyroid Stimulating Hormone 4.66 uIU/mL (0.32-4.0)
== END 2025-04-05 07:03 | disposition home or self-care (01) ==
LOC: HO.LAB 07:02
PROVIDERS: PCP Internal Medicine; Visit Provider Student in an Organized Health Care Education/Training Program
DX: E06.3 Autoimmune thyroiditis (principal)
CPT/HCPCS: 36415; 84439; 84443

== ENCOUNTER 2025-05-09 16:10 | Outpatient (AMB) | payer OTHER, SELFPAY ==
[2025-05-09 16:19] VITALS: BP 136/82; PULSE 93; O2SAT 99; BMI 29.7
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
== END 2025-05-09 17:04 | disposition home or self-care (01) ==
LOC: HO.HMCH 16:11
PROVIDERS: PCP Internal Medicine; Visit Provider Nurse Practitioner Family
DX: F39 Unspecified mood [affective] disorder (principal)

== ENCOUNTER → 2025-05-09 16:10 | Outpatient (BNVA) | payer OTHER, SELFPAY | PROVIDERS: PCP Internal Medicine; Visit Provider Nurse Practitioner Family | DX: F31.9 Bipolar disorder, unspecified (principal) | CPT/HCPCS: 99212 ==

== ENCOUNTER 2025-06-27 15:26 | Outpatient (AMB) | payer OTHER, SELFPAY ==
--- NOTE | 2025-06-27 15:51 | A.OFFPC_ITS ---
Vital Signs 06/27/25 15:54 Height 5 ft 2 in Weight 166 lb 2 oz BMI 30.4 BP 110/64 Blood Pressure Location Lt brachial Position Sitting Pulse 74 Pulse Source Pulse Oximeter Temp 96.9 F Temp Source Temporal Artery Scan Pulse Oximetry (%) 98 Oxygen Delivery Method Room Air Intake Visit Reasons: [facility] 06/18 Intake Note: Patient is here for hospital discharge follow up. Patient was discharged from [facility] on 06/18/25. Addictions Counselor Required: No Ui Developer: Not Required per policy Accompanied by: Self / Same As Patient Allergies codeine Allergy (Unknown, Verified 06/27/25 15:54) anxious/itchy oxycodone Allergy (Unknown, Verified 06/27/25 15:54) nausea Medication List - Last Reconciled 06/27/25 by Lenka John MD amlodipine 5 mg PO DAILY ascorbate calcium (vitamin C) 500 mg PO DAILY cholecalciferol (vitamin D3) 25 mcg PO DAILY divalproex ER 1,000 mg PO BEDTIME lorazepam 1 mg PO DAILY PRN paliperidone ER 3 mg PO BEDTIME Synthroid (levothyroxine) 112 mcg PO DAILY NS Tobacco use date assessed: 06/27/25 Dental Screening Dental Screen Date: 05/09/25 HPI HPI Comments History of Present Illness Details The patient is a 60 year old female presenting for a follow-up visit for medication management after a recent psychiatric hospitalization. She was recently hospitalized for a month and a half at a mental health facility in [place]. Her daughter reports that she was initially discharged while still in a manic phase and was later involuntarily sectioned. The patient was admitted around May 19 or and was discharged on June 18. All lab work performed during the hospitalization was negative. Her current medications include Depakote extended release 500 mg, amlodipine 5 mg, and paliperidone 3 mg. She is taking 1000 mg of Depakote at night with Ativan and will stop taking oral paliperidone on the as she is transitioning to monthly injections. For follow-up, she sees a therapist every two weeks on Wednesdays and will see a psychiatrist on the upcoming Monday. She also has a follow-up appointment with her PCP scheduled for [facility] Medical History (Updated 06/27/25 @ 17:07 by Lenka John MD) Mood disorder Cholelithiasis Colon cancer screening Left knee pain History of torn meniscus of left knee Cervical cancer screening Obesity (BMI 30-39.9) Hypothyroid Surgical History History of laparoscopic cholecystectomy History of tubal ligation Family History Father Alzheimers disease Myocardial infarct Mother Diabetes Hypertension Maternal Grandmother Liver cancer Bipolar 1 disorder Maternal Aunt Lung cancer Maternal Uncle FH: prostate cancer Paternal Grandmother Uterine cancer Brother CVA (cerebral vascular accident) Eye cancer Myocardial infarct Son Bipolar 1 disorder Family/Other Mental health disorder Maternal Grandfather Myocardial infarct Brother Myocardial infarct Social History Housing: Apartment Alcohol intake: never Patient Tobacco Use Status: Never used Tobacco Tobacco use type: Cigarette e-Cigarette/Vaping Use: Never Used Second Hand Smoke Exposure: No service: No Current occupational status: employed 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 Current occupational exposures/hazards: No Cognitive needs: No Hearing needs: No Vision needs: No Female Reproductive History Menstrual Age of Menarche: 15 Questionnaire Thrive Questionnaire Date Thrive assessed: 10/24/24 I am a: Patient What is your living situation today?: I have a steady place to live Within the past 12 months, did the food you bought not last and you didn't have the money to get more?: Never true Within the past 12 months, did you worry whether your food would run out before you got money to buy more?: Never true Do you have trouble paying for medicines?: No Do you have trouble getting transportation to medical appointments?: No Do you have trouble paying your heating and electricity bill?: No Do you have trouble taking care of your child, family member or friend?: No Do you have trouble with day-to-day activities such as bathing, preparing meals, shopping, managing finances, etc.?: No Are you currently unemployed and looking for a job?: Yes Are you interested in more education?: No Please select the resources that you would like help with: None Currently or been in a relationship where the following occur: No concerns reported THRIVE Score: 0 KATERYNA-7 AMB Questionnaire KATERYNA-7 Date KATERYNA - 7 assessed: 06/27/25 Feeling nervous, anxious, or on edge: 0 = Not at all Not being able to stop or control worryin = Not at all Worrying too much about different things: 0 = Not at all Trouble relaxin = Not at all Being so restless that it is hard to sit still: 0 = Not at all Becoming easily annoyed or irritable: 0 = Not at all Feeling afraid as if something awful might happen: 0 = Not at all Total KATERYNA-7 score (0-4 normal; 5-9 mild; 10-14 moderate; 15-21 severe): 0 Source: Developed by Drs. Barak Elise, Brandi Rich, Sameer Ceballos and colleagues, with an educational rodrick from [employer]. Review of Systems Const Details: As per HPI. Physical exam (Primary Care) Vital Signs: Last Vital Signs Temp 96.9 F 06/27/25 15:54 Pulse 74 06/27/25 15:54 BP 110/64 06/27/25 15:54 Pulse Ox 98 06/27/25 15:54 Oxygen Delivery Method Room Air 06/27/25 15:54 BMI result Body Mass Index 30.4 Tobacco/Smoking Status: Tobacco use Status Tobacco use date assessed 06/27/25 06/27/25 16:01 Patient Tobacco Use Status Never used Tobacco 06/27/25 16:01 Tobacco use type Cigarette 06/27/25 16:01 e-Cigarette/Vaping Use Never Used 06/27/25 16:01 Thrive Assessment: Date of Thrive Assessment Date Thrive assessed 10/24/24 06/27/25 16:01 Currently or been in a relationship where the following occur: No concerns reported Const Other: Pertinent findings are in BOLD GENERAL APPEARANCE NAD, activity normal for age, well developed/ well nourished, no cyanosis, pallor, or diaphoresis. EYES lids/conjunctiva normal. EARS/NOSE/THROAT Mucous membranes moist, nares normal, lips/teeth normal uvula midline without oral pharyngeal erythema, exudate or swelling TMs normal bilaterally. No lymphangitis/lymphedema. HEAD/NECK normocephalic atraumatic, no facial trauma, neck is supple. RESPIRATORY respiratory effort normal, speaks in full sentences, no tripod position, no accessory muscle use. Lungs clear to auscultation without rhonchi, wheezes, rales CARDIAC Regular rate and rhythm, no edema. ABDOMINAL Soft, ND/NT. No evidence of fluid wave. No pulsatile masses on exam, rebound tenderness, Crowley sign or pain over Mcburney's point. MUSCLES/EXTREMITIES No abnormal range of motion, no swelling. SKIN Warm, pink and dry. No rashes, dermatoses, petechiae or lesions. NEUROLOGICAL Speech is clear and appropriate. Normal level of consciousness. Gait and coordination are normal. 5/5 strength in all extremities. PSYCH Normal mood and affect. Judgement/competence is appropriate Coding Level of Care Code Est Pt Level 4 (55890) Diagnoses Hospital discharge follow-up Z51.89 Time Spent (min) 30 Assessment & Plan Assessment & Plan (1) Hospital discharge follow-up: Code(s): Z51.89 - Encounter for other specified aftercare Category: Medical Plan: - This visit served as a post-hospitalization follow-up to reconcile medications and ensure continuity of care. - Current psychiatric medications were reviewed, including Depakote 1000 mg at night with Ativan, and paliperidone, which will be transitioning from an oral to a monthly injectable form. - The patient reports she is doing better. - She has established outpatient mental health follow-up, with a therapist appoi ntment every two weeks and a psychiatrist appointment this coming Monday. - The importance of attending these follow-up appointments was reinforced. Plan I met with the patient and her daughter to review her care following a recent [id number]-long psychiatric hospitalization for a manic episode. I explained that the primary goal of this visit was to ensure her medications were correct post-discharge and that she had appropriate follow-up scheduled. We reviewed her current medications, including Depakote 1000 mg, Ativan, and paliperidone. I noted the plan to transition her from oral paliperidone to a monthly injection. I acknowledged her report that medication side effects linger in the morning. I confirmed that she has successfully established outpatient care, with therapy appointments every two weeks and an upcoming psychiatrist appointment on Monday. I affirmed that having this follow-up in place is excellent and essential for h er ongoing stability.
[2025-06-27 15:54] VITALS: BP 110/64; PULSE 74; TEMP 36.1; O2SAT 98; BMI 30.4
== END 2025-06-27 16:16 | disposition home or self-care (01) ==
LOC: HO.HMCH 15:27
PROVIDERS: PCP Internal Medicine; Visit Provider Internal Medicine
DX: Z51.89 Encounter for other specified aftercare (principal)

== ENCOUNTER → 2025-06-27 15:26 | Outpatient (BNVA) | payer OTHER, SELFPAY | PROVIDERS: PCP Internal Medicine; Visit Provider Internal Medicine | DX: Z51.89 Encounter for other specified aftercare (principal); Z51.81 Encounter for therapeutic drug level monitoring; Z79.890 Hormone replacement therapy; Z79.899 Other long term (current) drug therapy | CPT/HCPCS: 99212 ==